=== PATIENT | male | born 1980 | race Caucasian/White ===

== ENCOUNTER 2018-01-17 11:47 | Emergency (ER) | payer MEDICAID, SELFPAY ==
[2018-01-17 11:49] VITALS: BP 137/94; PULSE 93; RESP 16; TEMP 36.1; O2SAT 97; BMI 26.9
[2018-01-17 12:20] VITALS: RESP 18
[2018-01-17 12:26] LABS: Amphetamine Urine VISTA NEGATIVE (<1000 ng/mL); Barbiturate Urine VISTA NEGATIVE (< 200 ng/mL); Benzodiazepine Urine VISTA NEGATIVE (< 200 ng/mL); Cocaine Urine VISTA NEGATIVE (< 300 ng/mL); Ecstacy Urine VISTA NEGATIVE (< 500 ng/mL); Methadone Urine VISTA NEGATIVE (< 300 ng/mL); PCP Urine VISTA NEGATIVE (< 25 ng/mL); THC Urine VISTA NEGATIVE (< 50 ng/mL); Vista UDS pH Range 7
--- NOTE | 2018-01-17 12:41 | ED.VISSUMM ---
- ER Visit Summary Date of Service: 01/17/18 Chief Complaint: [Request for drug screen and cough and congestion] History of Present Illness: The patient is a 37 M [presents the emergency department requesting to have a urine toxicology screen done. Patient currently is a resident at the [facility] and had a urine test that tested positive for amphetamines this morning. Patient is adamant that he does not use amphetamines and he believes it is due to a false positive related to taking Zantac. Patient states that he does have a history of alcohol abuse but does not use drugs. Patient is scheduled to go into rehab for his alcohol use but he is afraid that if he gets kicked out of the [facility] he will be homeless and have nowhere to go. Patient also states that he has had cough and congestion for about a week. He has not had any fevers. Cough is at times productive but he just swallows whenever he coughs up and has not seen any discoloration to the sputum. Patient currently with history of anxiety, depression, and history of DVT. Patient currently on Eliquis and has been compliant. He denies any hemoptysis.] Physical Examination: [HEENT-PERRLA, EOMI. Cranial nerves II through XII grossly intact. TMs clear. Mucous membranes moist. No adenopathy. Cardiovascular-regular rate and rhythm without murmur or ectopy Lungs-clear to auscultation, chest wall stable without crepitus or subcu emphysema Abdomen-normoactive bowel sounds, soft, nontender, no rebound or rigidity, no peritoneal signs. Extremities-intact ?4, normal range of motion, normal pulses, atraumatic]. No track pope noted on the extremities. Test Results: [Urine tox screen obtained was negative for drugs of abuse.] Emergency Department Course and Treatment: [Patient did not want any treatment for his upper respiratory infection] Treatment Plan: [Patient will be referred to primary care physician front office secretary for no doc and he is refusing any treatment for his URI. I suspect likely viral etiology however recommended follow-up if his symptoms do not improve or if he should start having increasing shortness of breath or high fevers.] Disposition: [Discharged home in stable condition] Impression: [URI Request for toxicology screen which is negative for drugs of abuse] This note was generated with Jiniation software. It may contain incorrect words, spelling, and punctuation that were not noted in review of the chart prior to signing ED Disposition - Plan for ED Patient: Chief Complaint: Cold Sx Referrals: NOT,DEFINED [Primary Care Provider] -
--- NOTE | 2018-01-17 12:44 | ED.DCSUM_ITS ---
- ER Visit Summary Date of Service: 01/17/18 Chief Complaint: [Request for drug screen and cough and congestion] History of Present Illness: The patient is a 37 M [presents the emergency department requesting to have a urine toxicology screen done. Patient currently is a resident at the [facility] and had a urine test that tested positive for amphetamines this morning. Patient is adamant that he does not use amphetamines and he believes it is due to a false positive related to taking Zantac. Patient states that he does have a history of alcohol abuse but does not use drugs. Patient is scheduled to go into rehab for his alcohol use but he is afraid that if he gets kicked out of the [facility] he will be homeless and have nowhere to go. Patient also states that he has had cough and congestion for about a week. He has not had any fevers. Cough is at times productive but he just swallows whenever he coughs up and has not seen any discoloration to the sputum. Patient currently with history of anxiety, depression, and history of DVT. Patient currently on Eliquis and has been compl iant. He denies any hemoptysis.] Physical Examination: [HEENT-PERRLA, EOMI. Cranial nerves II through XII grossly intact. TMs clear. Mucous membranes moist. No adenopathy. Cardiovascular-regular rate and rhythm without murmur or ectopy Lungs-clear to auscultation, chest wall stable without crepitus or subcu emphysema Abdomen-normoactive bowel sounds, soft, nontender, no rebound or rigidity, no peritoneal signs. Extremities-intact ?4, normal range of motion, normal pulses, atraumatic]. No track pope noted on the extremities. Test Results: [Urine tox screen obtained was negative for drugs of abuse.] Emergency Department Course and Treatment: [Patient did not want any treatment for his upper respiratory infection] Treatment Plan: [Patient will be referred to primary care physician cash control specialist for no doc and he is refusing any treatment for his URI. I suspect likely viral et iology however recommended follow-up if his symptoms do not improve or if he should start having increasing shortness of breath or high fevers.] Disposition: [Discharged home in stable condition] Impression: [URI Request for toxicology screen which is negative for drugs of abuse] This note was generated with Dragon dictation software. It may contain incorrect words, spelling, and punctuation that were not noted in review of the chart prior to signing ED Disposition - Plan for ED Patient: Chief Complaint: Cold Sx Referrals: NOT,DEFINED [Primary Care Provider] -
--- NOTE | 2018-01-17 12:44 | ED.DEP ---
ED Disposition - Plan for ED Patient: Chief Complaint: Cold Sx Instructions: ED Upper Resp Infec No Abx Tx Referrals: NOT,DEFINED [Primary Care Provider] - Peter Dangelo DO [STAFF PHYSICIAN] - 5-7 Days Additional Instructions: Your Toxicology screen was negative for drugs of abuse
--- OUTSIDE RECORDS SUMMARY | 2018-03-13 20:10 | XMS RPT_ITS ---
:1980 Author Organization OHIP Care Team Providers Name Role Phone GER LOGAN Attending Unavailable NO FAMILY DOCTOR, NO FAMILY DOCTOR Primary Care Unavailable NO FAMILY DOCTOR, NO FAMILY DOCTOR Primary Care Unavailable CHRISTINA NAVARRETE Attending Unavailable DANYEL KEEN Admitting Unavailable DANYEL KEEN Attending Unavailable Denise Nava Attending Unavailable Primay Care Physicia, No Primary Care Unavailable Peter Gregg GLOBAL PROFESSIONAL-C Attending Unavailable Primay Care Physicia, No Referring Unavailable RADHA CHAVEZ Attending Unavailable YULIYA HEARD MD Attending Unavailable MOLLY BARRERA, DR. PAGE Primary Care Unavailable YULIYA HEARD MD Attending Unavailable MOLLY BARRERA, DR. PAGE Primary Care Unavailable LEAH VELAZQUEZ MD Attending Unavailable MOLLY BARRERA, DR. PAGE Primary Care Unavailable LEAH VELAZQUEZ MD Attending Unavailable MOLLY BARRERA, DR. PAGE Primary Care Unavailable MOLLY BARRERA, DR. PAGE Primary Care Unavailable SUE SAUNDERS, DR. MONTAÑO Attending Unavailable [employer] Attending Unavailable [facility] Referring Unavailable DANYEL KEEN Admitting Unavailable DANYEL KEEN Attending Unavailable [facility] Referring Unavailable [facility] Referring Unavailable [facility] Referring Unavailable PROBLEMS PROBLEMS DATE TYPE CONDITION / CODE ATTENDING STATUS SOURCE 11/09/2017 Active Major depressive RADHA CHAVEZ Active [place] disorder, single [facility] Main episode, [place] unspecified / Repository F32.9(ICD-10) 11/09/2017 Active Suicidal ideations RADHA CHAVEZ Active [place] / R45.851(ICD-10) R Clinic Main [place] Repository 08/08/2017 Active Displaced fracture NA Active [facility] proximal phalanx [facility] Other of unspecified [place] finger, subsequent Repository encounter for fracture with routine healing / S62.619D(ICD-10) 06/26/2017 Active Displaced fracture DANYEL KEEN Active [facility] proximal phalanx [facility] Other of unspecified [place] finger, initial Repository encounter for closed fracture / S62.619A(ICD-10) 06/25/2017 Active Unknown / NA Active [place] [facility] Other [place] Repository 06/20/2017 Active Displaced fracture NA Active [facility] distal phalanx [facility] Other of left index [place] finger, initial Repository encounter for closed fracture / S62.631A(ICD-10) 06/20/2017 Admitting Unknown / [employer] Active [facility]Unknown[facility] Repository 04/01/2017 Admitting Chest pain, ARMADA, CHRISTINA Active [facility] diagnosis unspecified / Repository R07.9(ICD-9) 04/01/2017 Final diagnosis Chest pain, ARMADA, CHRISTINA Active [facility] (discharge) unspecified / Repository R07.9(ICD-9) 04/01/2017 Final diagnosis Anxiety disorder, CHRISTINA NAVARRETE [facility] (discharge) unspecified / Repository F41.9(ICD-9) 04/01/2017 Final diagnosis Major depressive [facility] (discharge) disorder, single Repository episode, unspecified / F32.9(ICD-9) 04/01/2017 Final diagnosis Post-traumatic [facility] (discharge) stress disorder, Repository unspecified / F43.10(ICD-9) 04/01/2017 Final diagnosis Nicotine [facility] (discharge) dependence, chewing Repository tobacco, uncomplicated / F17.220(ICD-9) 04/01/2017 Final diagnosis Family hx of ischem [facility] (discharge) heart dis and oth Repository dis of the circ sys / Z82.49(ICD-9) 03/10/2017 Admitting Personal history of ATASSI, FIRAS S Active [facility] diagnosis other specified Repository conditions / Z87.898(ICD-9) 03/10/2017 Final diagnosis Personal history of ATASSI, FIRAS S Active [facility] (discharge) other specified Repository conditions / Z87.898(ICD-9) PROCEDURES PROCEDURES No Procedure Records FoundRESULTS RESULTS INTERNAL MEDICINE Observed: 02/03/2018 Status: F Source: PILI OFFICE VISIT 2:37 PM [facility] REPOSITORY [facility] [address] [place] [address] [place] [address] OFFICE VISIT Date of Service: 02/03/18 MR#: [id number] Acct: [id number] Name: MAENBAKEM Dayna Rep #: [id number] : 1980 Provider: Peter Gregg NP Age/Sex: 37/M Location: [facility] Status: Signed Intake Vital Signs02/03/18 Height 6 ft 1 in 02/03/18 Weight: 233 lb 02/03/18 Body Mass Index (BMI) 30.7 02/03/18 Blood Pressure 114/79 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 with 180 Chief Complaint: Est Care - Needs refills, AND ear inf Is patient in pain?: No Allergies ibuprofen Allergy (Severe, Verified 02/03/18 09:33) Unknown Penicillins Allergy (Severe, Verified 02/03/18 09:33) Unknown Medications acetaminophen 500 mg capsule 500 mg PO Q6H PRN 02/03/18 [History Confirmed 02/03/18] apixaban 5 mg tablet 5 mg PO BID 02/03/18 [History Confirmed 02/03/18] escitalopram 10 mg tablet 10 mg PO DAILY #60 tab 02/03/18 [Rx Confirmed 02/03/18] esomeprazole magnesium 20 mg capsule,delayed release 20 mg PO DAILY 02/03/18 [History Confirmed 02/03/18] hydroxyzine HCl 25 mg tablet 25 mg PO BID PRN tab 02/03/18 [History Confirmed 02/03/18] multivitamin tablet 1 tab PO DAILY #90 tab 02/03/18 [Rx Confirmed 02/03/18] zpvhzehn-wppbpkjca-bjbhygvxn 3.5 mg-10,000 unit/mL-1 % ear drops,susp 4 drp OTIC TID 7 Days #10 ml 02/03/18 [Rx Confirmed 02/03/18] thiamine HCl (vitamin B1) 100 mg tablet 100 mg PO DAILY #90 tab 02/03/18 [Rx Confirmed 02/03/18] PFSH Medical History Alcohol abuse (Acute) Arthritis (Acute) Blood clot in vein (Acute) Drug abuse (Acute) Gastric ulcer (Acute) Seasonal allergies (Acute) Chronic bronchitis (Chronic) Chronic headaches (Chronic) Surgical History History of orthopedic surgery (Acute) Family History Mother Arthritis Cancer Father Arthritis Grandfather Alcohol abuse Father Arthritis Hypertension Myocardial infarction Grandmother High cholesterol Social History alcohol intake: former details: 2 Months sober ( 12/03/17) substance use type: former substance user Date of last use: Long Long time what type of physical activity do you participate in: weight training frequency: daily HPI HPI Chief Complaint: Est Care - Needs refills, AND ear inf Details: KEM HOLGUIN, is a 37 M who presents to the office today for an acute visit of left ear pain and needing refills of his Lexapro. He has a past medical history significant for acute left lower extremity DVT 2 months ago currently on Eliquis, depression, anxiety, and alcohol abuse which she is currently in the 180 program for. He is new to our office as well. The patient states that he has had a left ear pain for approximately 1.5 weeks. He states that he does use earplugs at night which are disposable, however he never cleans or switches them out. He states that there is pain on manipulation of his left ear. He denies any discharge, ringing the ears, ear pressure, or muffled hearing however. He denies any other aggravating or relieving factors. He does think that his symptoms are progressively getting worse. The patient also brings up his Lexapro. He states that approximately 2-1/2 months ago his Lexapro was increased to 20 mg after a drunken episode where he threatened suicide. He states that since having increased, he has been more tired lately and he wonders if he can go back to the 10 mg which she had been on prior for 2 years and was tolerating well. He currently denies any thoughts of harming self or others and states that he does not even recall saying he had suicidal tendencies during his drug an episode. He has now been sober for 2 months as well. The patient otherwise denies any fever, chills, nausea, vomiting, shortness of breath, chest pain or pressure, palpitations, orthopnea, lower extremity edema, syncope or presyncopal episodes. ROS Const Constitutional: No chills, fatigue, fever(s), frequent falls, malaise, weakness, sleep problems or change in appetite Eyes Eyes: No blurry vision, change in vision, double vision, discharge or visual disturbances ENT ENT: Positive for ear pain (Left ) and nasal congestion; no abnormal hearing, ear pressure, tinnitus, dizziness/vertigo or hearing loss Resp Respiratory: No cough, shortness of breath or wheezing Cardio Cardiology: No chest pain at rest, chest pain with exertion, shortness of breath, dyspnea on exertion, generalized swelling, irregular heart rhythm, lightheadedness, orthopnea, fast heart rate or palpitations Gastro GI: Positive for constipation, heartburn and excessive flatus; no abdominal pain, change in bowel habits, diarrhea, nausea/dyspepsia or vomiting Genitourinary Male: No difficulty urinating, burning urination, painful urination, urinary incontinence, urinary frequency, urinary urgency, urinary hesitancy, urinary retention, blood in urine, Frequent nighttime urination/ nocturia, sexual problems, testicle lump or testicle pain Musc Musculoskeletal: Positive for joint pain (Arthritis); no back pain, joint swelling, limited range of motion, numbness, tingling or muscle weakness Skin Skin: No change in skin color, itching, rash or wounds Breast Breast: No breast lump or breast pain Neuro Neurology: No frequent falls, weakness, abnormal hearing, numbness, tingling, unsteady gait/balance, dizziness, loss of vision, memory loss or visual disturbances Psych Psychiatric: No memory loss, Positive for anxiety, No change in appetite, Positive for depression, No Thoughts of harming yourself/Others Endo Endocrine: No fatigue, heat intolerance, increased thirst/drinking, increased hunger or increased urination Aller/Imm Allergy/Immunologic: No wheezing, itchy eyes or seasonal allergy symptoms Juan/Lymp Hematologic/Lymphatic: No easy bleeding, easy bruising or enlarged lymph nodes Exam Const General: cooperative, comfortable, no acute distress Nutritional Appearance: average body habitus, well nourished Orientation: alert, oriented x3 Limitations: mental status not altered HENMT Head: normal to inspection Ears: hearing grossly normal bilaterally, EAC abnormal erythema on the left, EAC tenderness on the left, other and edema on the left Nose: external nose normal Face and sinus: normal facial exam Mouth: oral mucosae normal Throat: posterior oropharynx normal Resp Effort AND Inspection: normal respiratory effort, able to speak in complete sentences, normal respiratory pattern, symmetric chest movement, no audible wheezes, no cough Auscultation: Bilateral: Clear to Auscultation Cardio Palpation: normal PMI Rate: regular rate Heart Sounds: S1 normal, S2 normal, normal S1 and S2, no click, no gallops, no murmurs, no rubs Musc Musculoskeletal: No joint tenderness, decreased ROM or muscle weakness Skin General: no rashes or lesions noted, elasticity normal, turgor normal Lesions: no lesions Rashes: no rashes Neuro General: alert, awake, oriented x3, CN's II-XI intact bilaterally Speech: speech normal Gait: normal gait Motor: muscle tone normal throughout Extrem General: normal to inspection, normal gait, no edema, no pedal edema Psych Appearance: grossly normal Mental Status: mental status grossly normal Affect: normal affect Attitude: cooperative Thought Process: normal Assessment AND Plan 1. Left otitis externa H60.92 Plan Patient symptoms are consistent with left otitis externa, the external ear canal is erythematous, edematous, and tragal tenderness on manipulation. Will treat with Cortisporin eardrops 3 times a day times 7 days. Discussed proper hygiene and discussed not reusing disposable earplugs. Patient to follow-up in 4 weeks for formal establishment appointment, no previous PCP 2. Depression with anxiety F41.8 Plan PHQ 9 score 4, patient does state since having the Lexapro increased to 20 mg he is feeling more tired and lethargic. We will taper him back down to 10 mg daily and see how he does. No current thoughts of harming self or others. Patient to follow- up in 4 weeks. 3. Alcohol abuse F10.10 Plan Patient per self report has been 2 months sober and will continue to remain in the 180 program. Thiamine supplementation sent to the pharmacy given his alcohol abuse history. Plan Detail Other Medications New: Discontinued: Follow Up 4 weeks or sooner if needed Coding Level of Care Code Off vis,new,level 3 Diagnoses Left otitis externa H60.92 Depression with anxiety F41.8 Alcohol abuse F10.10 02/03/18 1437 <Electronically signed by Peter GRANADOS> Date Peter GRANADOS Cosigner Signature: Date (if applicable) CC: DISCHARGE INSTRUCTION Observed: 01/17/2018 Status: F Source: [place] 12:45 PM [facility] REPOSITORY [facility] Medical Records Department [address] [place] [id number] Discharge Instruction 01/17/18 1244 MR#: [id number] Acct: [id number] Name: KEM HOLGUIN Rep #: [id number] : 1980 37 From: Denise Nava DO PCP: NOT, DEFINED Status: PRE ER ED Disposition - Plan for ED Patient: Chief Complaint: Cold Sx Instructions: ED Upper Resp Infec No Abx Tx Referrals: NOT,DEFINED [Primary Care Provider] - Peter Dangelo DO [STAFF PHYSICIAN] - 5-7 Days Additional Instructions: Your Toxicology screen was negative for drugs of abuse What to do if you have Problems For any increased pain, shortness of breath, bleeding, nausea or vomiting, chest pain, or any unexpected problems, contact your Primary Care Provider. Call [facility] ([phone]) or report to the closest Emergency Room. Call 911 if necessary. 01/17/18 1245 <Electronically signed by Denise Nava DO> Date Denise Nava DO Cosigner Signature (If Indicated): Date CC: DEFINED NOT EMERGENCY DEPARTMENT Observed: 01/17/2018 Status: F Source: [place] SUMMARY 12:44 PM [facility] REPOSITORY [facility] Medical Records Department [address] [place] [address] Emergency Department Summary 01/17/18 1241 MR#: [id number] Acct: [id number] Name: KEM HOLGUIN Rep #: [id number] : 1980 37 From: Denise Nava DO PCP: NOT, DEFINED Status: PRE ER - ER Visit Summary Date of Service: 01/17/18 Chief Complaint: [Request for drug screen and cough and congestion] History of Present Illness: The patient is a 37 M [presents the emergency department requesting to have a urine toxicology screen done. [facility] and had a urine test that tested positive for amphetamines this morning. Patient is adamant that he does not use amphetamines and he believes it is due to a false positive related to taking Zantac. Patient states that he does have a history of alcohol abuse but does not use drugs. Patient is scheduled to go into rehab for his alcohol use but he is afraid that if he gets kicked out of the [facility] he will be homeless and have nowhere to go. Patient also states that he has had cough and congestion for about a week. He has not had any fevers. Cough is at times productive but he just swallows whenever he coughs up and has not seen any discoloration to the sputum. Patient currently with history of anxiety, depression, and history of DVT. Patient currently on Eliquis and has been compliant. He denies any hemoptysis.] Physical Examination: [HEENT-PERRLA, EOMI. Cranial nerves II through XII grossly intact. TMs clear. Mucous membranes moist. No adenopathy. Cardiovascular-regular rate and rhythm without murmur or ectopy Lungs-clear to auscultation, chest wall stable without crepitus or subcu emphysema Abdomen-normoactive bowel sounds, soft, nontender, no rebound or rigidity, no peritoneal signs. Extremities-intact 4, normal range of motion, normal pulses, atraumatic]. No track pope noted on the extremities. 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 I suspect likely viral etiology however recommended follow-up if his symptoms do not improve or if he should start having increasing shortness of breath or high fevers.] Disposition: [Discharged home in stable condition] Impression: [URI Request for toxicology screen which is negative for drugs of abuse] This note was generated with [employer] dictation software. It may contain incorrect words, spelling, and punctuation that were not noted in review of the chart prior to signing ED Disposition - Plan for ED Patient: Chief Complaint: Cold Sx Referrals: NOT,DEFINED [Primary Care Provider] - What to do if you have Problems For any increased pain, shortness of breath, bleeding, nausea or vomiting, chest pain, or any unexpected problems, contact your Primary Care Provider. Call [facility] ([phone]) or report to the closest Emergency Room. Call 911 if necessary. 01/17/18 1248 <Electronically signed by Denise Nava DO> Date Denise Nava DO Cosigner Signature (If Indicated): Date CC: DEFINED NOT URINE DRUG SCREEN Collected: 01/17/2018 Status: F Source: PILI (VISTA) 12:00 PM [facility] REPOSITORY TYPE CODE TESTS RESULT OUT OF RANGE REFERENCE UNITS LAB L505.0075 TO BE Normal CONFIRMED Result Comment: CONFIRMATORY TESTING FOR ALL POSITIVE URINE DRUG SCREEN RESULTS WILL ONLY BE SENT OUT UPON PHYSICIAN ORDER. VISTA Urine Drug Screen methods provide only preliminary analytical test results. A more specific alternate chemical method must be used in order to obtain a confirmed analytical result. Gas chromatography/mass spectrometery (GC/MS) is the preferred confirmatory method. Clinical consideration and professional judgement should be applied to any drug of abuse test result, particularly when preliminary positive results are used. URINE TCA TESTING MUST BE ORDERED SEPARATELY. USE TEST MNEMONIC: [facility] LAB L505.5005 VISTA UDS PH 7 Normal LAB L505.5015 <1000 ng/mL AMPHETAMINES Normal NEGATIVE LAB L505.5025 < 200 ng/mL BARBITIURATES Normal NEGATIVE LAB L505.5035 < 200 ng/mL BENZODIAZIPINE Normal NEGATIVE LAB L505.5045 < 300 ng/mL COCAINE Normal NEGATIVE LAB L505.5055 < 500 ng/mL ECSTACY Normal NEGATIVE LAB L505.5065 < 300 ng/mL METHADONE Normal NEGATIVE LAB L505.5075 < 300 ng/mL OPIATES Normal NEGATIVE LAB L505.5085 < 25 ng/mL PCP Normal NEGATIVE LAB L505.5095 < 50 ng/mL THC Normal NEGATIVE Performed By: #### L505.5000 #### [facility] [address] [place], [address] VL VENOUS UNILATERAL Observed: 12/05/2017 Status: F Source: [facility] EXT FOR DVT 3:06 PM [facility] REPOSITORY ORIGINAL LEFT lower extremity venous ultrasound, grayscale study with duplex Doppler exam including color Doppler interrogation and waveform analysis HISTORY: Pain COMPARISON: None The common femoral, superficial femoral and popliteal veins are patent and readily compressible. Color Doppler interrogation and augmentation are normal in these areas. The LEFT posterior tibial and gas trocnemius veins are abnormal. There are filled with echogenic material and appear mildly expanded. The findings are most compatible with acute clot. There is no other significant contributory abnormality identified. IMPRESSION: This exam shows clot at the LEFT posterior tibial and gastrocnemius veins. No other significant clot identified. Interpreted By: Brooklyn Breen MD Preliminary Report By: Brooklyn Breen MD Electronically Signed By: Brooklyn Breen MD Dictated Date: 12/08/2017 9:34:20 AM Prelim Date: 12/08/2017 9:34:20 AM Sign Date: 12/08/2017 10:40:00 AM ED NOTE Observed: 11/10/2017 Status: COMPLETED Source: [place] 11:45 AM [facility] REPOSITORY HNO ID: [id number] Author: Terry Mojica) SHAHZAD Branch Service: Emergency Medicine Author Type: Registered Nurse Type: ED Notes Filed: 11/10/2017 11:59 AM Note Text: Received IC from pt girlfriend Bushra. Advised Bushra pt admitted to [facility]. ED NOTE Observed: 11/10/2017 Status: COMPLETED Source: [place] 11:44 AM [facility] REPOSITORY HNO ID: [id number] Author: Terry Mojica) SHAHZAD Branch Service: Emergency Medicine Author Type: Registered Nurse Type: ED Notes Filed: 11/10/2017 11:45 AM Note Text: Admission discussed - pt verbalizes understanding of. Report called to receiving nurse Mayela PIKE. Verbal report provided to DM crew. ED NOTE Observed: 11/10/2017 Status: COMPLETED Source: [place] 11:00 AM [facility] REPOSITORY HNO ID: [id number] Author: Terry Mojica) SHAHZAD Branch Service: Emergency Medicine Author Type: Registered Nurse Type: ED Notes Filed: 11/10/2017 11:12 AM Note Text: Pt laying in bed resting quietly with eyes closed. Easily arouses to verbal stimuli. Respirations even and unlabored with equal chest rise and fall. Comfort measures provided. Snack of jas yoshi and pretzels provided. No needs voiced at this time. ED PROV NOTE Observed: 11/10/2017 Status: COMPLETED Source: [place] 10:27 AM [facility] REPOSITORY HNO ID: [id number] Author: Radha Chavez DO Service: Emergency Medicine Author Type: Physician Type: ED Provider Notes Filed: 11/10/2017 10:27 AM Note Text: Addendum note: Care endorsed to me at morning shift change his face report. Patient accepted to [facility] for psychiatric admission Condition: Stable Disposition: Transfer [facility] Radha Chavez, 11/10/17 1027 ED NOTE Observed: 11/10/2017 Status: COMPLETED Source: [place] 9:10 AM [facility] REPOSITORY HNO ID: [id number] Author: Terry Branch RN Service: Emergency Medicine Author Type: Registered Nurse Type: ED Notes Filed: 11/10/2017 9:13 AM Note Text: Pt requesting something I am so anxious. Dr. Chavez advised of. NO VO received - Ativan 2 mg PO x 1 now. ED NOTE Observed: 11/10/2017 Status: COMPLETED Source: [place] 9:01 AM [facility] REPOSITORY HNO ID: [id number] Author: Terry Branch RN Service: Emergency Medicine Author Type: Registered Nurse Type: ED Notes Filed: 11/10/2017 9:01 AM Note Text: Security notified of need to inventory and clear pt belongings. ED NOTE Observed: 11/10/2017 Status: COMPLETED Source: [place] 8:59 AM [facility] REPOSITORY HNO ID: [id number] Author: Terry Branch RN Service: Emergency Medicine Author Type: Registered Nurse Type: ED Notes Filed: 11/10/2017 9:00 AM Note Text: Call placed to pt girlfrienlaya Rock per his request advising that he will be transferred to [facility] in [place]. Call back number provided on answering machine. Pt requests to talk to her if she calls. ED NOTE Observed: 11/10/2017 Status: COMPLETED Source: [place] 8:53 AM [facility] REPOSITORY HNO ID: [id number] Author: Terry Branch RN Service: Emergency Medicine Author Type: Registered Nurse Type: ED Notes Filed: 11/10/2017 8:54 AM Note Text: Call placed to Joanna inquiring on admission status of pt. Per Micheline pt to be admitted at [facility] when bed available. Expect discharges at [facility] this morning. ED NOTE Observed: 11/10/2017 Status: COMPLETED Source: [place] 8:30 AM [facility] REPOSITORY HNO ID: [id number] Author: Terry Mojica) SHAHZAD Branch Service: Emergency Medicine Author Type: Registered Nurse Type: ED Notes Filed: 11/10/2017 8:30 AM Note Text: Pt up to BR. Continuous monitoring by staff member maintained. ED NOTE Observed: 11/10/2017 Status: COMPLETED Source: [place] 7:15 AM [facility] REPOSITORY HNO ID: [id number] Author: Terry KimRn) Jose Carlos RN Service: Emergency Medicine Author Type: Registered Nurse Type: ED Notes Filed: 11/10/2017 7:59 AM Note Text: Pt laying in bed resting quietly with eyes closed. Easily arouses to verbal stimuli. Respirations even and unlabored with equal chest rise and fall. Pt cooperative with staff/care. Comfort measures provided - pillow per request. Continuous observation maintained. Updated on POC - awaiting bed/assignment/transfer. Pt verbalizes understanding of. No needs voiced at this time. Pt denies SI when specifically asked. ED NOTE Observed: 11/10/2017 Status: COMPLETED Source: [place] 7:13 AM [facility] REPOSITORY HNO ID: [id number] Author: Vinny Mojica) SHAHZAD Massey Service: (none) Author Type: Registered Nurse Type: ED Notes Filed: 11/10/2017 7:14 AM Note Text: Handoff report given to Terry Melvin rn ED NOTE Observed: 11/10/2017 Status: COMPLETED Source: [place] 6:43 AM [facility] REPOSITORY HNO ID: [id number] Author: Vinny KimRn) SHAHZAD Massey Service: (none) Author Type: Registered Nurse Type: ED Notes Filed: 11/10/2017 6:45 AM Note Text: Pt advised he is getting admitted to [facility]. Pt verbalizes understanding and is agreeable. Pt is alert and oriented x 3. Vitals are stable. Pt was sleeping but easily awakened for vitals ED NOTE Observed: 11/10/2017 Status: COMPLETED Source: [place] 3:34 AM [facility] REPOSITORY HNO ID: [id number] Author: Vinny Mojica) SHAHZAD Massey Service: (none)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 MSK: Negative for joint pain, swelling, back pain, muscle pain. SKIN: Negative for lesions, rash, itching, metal sensitivity NEURO: Negative for seizure, trauma, numbness/tingling of extremities. ENDOCRINE: Negative for Diabetes Type 1 and Type 2 HEMATOLOGY: Negative for excessive bleeding, clots, bleeding disorders. Referring Provider: SELF [200] Allergies As of Date: 08/08/2017 Noted Allergy Reaction IBUPROFEN 05/03/2007 PENICILLINS 06/20/2017 14 - Other: See Comments Date Reviewed: 08/08/2017 Reviewed by: Monica Alejo - Fully Assessed Reason for Visit: Follow Up [171] Cmt: LT 2ND DIGIT Primary Visit Diagnosis:Closed fracture dislocation of proximal interphalangeal (PIP) joint of finger with routine healing, subsequent encounter [S62.619D] Order(s):XR DIGIT GENERAL 3V FRONTAL/LAT/OBL LT [[id number]] Order #: [id number] Prescriptions as of 08/08/2017 Sig: IBUPROFEN 800 MG TABLET Take 1 tablet by mouth every * ESOMEPRAZOLE MAGNESIUM 20 MG * Take 20 mg by mouth DAILY (6 * ACETAMINOPHEN 500 MG TABLET Take 2 tablets by mouth every* CYCLOBENZAPRINE 10 MG TABLET Take 1 tablet by mouth every * Problem List As Of Date 08/08/2017 Noted Resolved Closed fracture dislocation of proximal interph*INVALID FOR* Level of Service: EST PATIENT VISIT LEVEL 2 [18549] Disposition: Return if symptoms worsen or fail to improve. LOS history recorded Follow-up and Disposition History Recorded Encounter Status:Closed by BROOKLYN MCCOY MD on 08/08/17 Chart Close Cosign Required by: Roberto Norris[] PROGRESS Observed: 08/08/2017 Status: COMPLETED Source: [place] 10:29 AM [facility] REPOSITORY HNO ID: [id number] Author: Monica Alejo Service: (none) Author Type: [employer]ur [employer] Type: Progress Notes Filed: 08/08/2017 10:33 AM Note Text: REVIEW OF SYSTEMS: GENERAL: Well developed, well nourished. No acute distress PAIN: Negative for pain, history of chronic pain or current treatment for chronic pain conditions CARDIOVASCULAR: Negative for chest pain, leg swelling and palpations. MSK: Negative for joint pain, swelling, back pain, muscle pain. SKIN: Negative for lesions, rash, itching, metal sensitivity NEURO: Negative for seizure, trauma, numbness/tingling of extremities. ENDOCRINE: Negative for Diabetes Type 1 and Type 2 HEMATOLOGY: Negative for excessive bleeding, clots, bleeding disorders. PROGRESS Observed: 08/08/2017 Status: COMPLETED Source: [place] 10:24 AM [facility] REPOSITORY HNO ID: [id number] Author: [place] (Sherrie Mccoy Service: (none) Author Type: Resident Type: Progress Notes Filed: 08/08/2017 12:06 PM Note Text: Chief complaint: s/p ORIF L index PIP fx/dx 06/26/2017 Kem Holguin is a 36 year old male who presents for follow up after undergoing the above procedure on the above date. His follow up has been delayed due to recent incarceration. He has been compliant with non weight bearing restrictions in gerson straps. He only has complaints of mild stiffness. Taking ibuprofen for pain which controls his pain well. He has no other complaints at this time. Reviewed nursing note and current pain scale. PAST MEDICAL HISTORY Diagnosis Date - Saucedo-Sue disease (HCC) PAST SURGICAL HISTORY Procedure Laterality Date - EXTENSIVE LEG SURGERY - FINGER SURGERY HX Left No family history on file. Social History Substance Use Topics - Smoking status: Never Smoker - Smokeless tobacco: Current User Types: Snuff - Alcohol use No Medications:ibuprofen (MOTRIN) 800 mg tablet, Take 1 tablet by mouth every 8 hours as needed (for pain.). esomeprazole (NEXIUM) 20 mg capsule, Take 20 mg by mouth DAILY (6 AM). acetaminophen (TYLENOL EXTRA STRENGTH) 500 mg tablet, Take 2 tablets by mouth every 8 hours as needed for Pain. cyclobenzaprine 10 mg tablet, Take 1 tablet by mouth every 8 hours as needed. No current facility-administered medications for this visit. Allergies: ALLERGIES Allergen Reactions - Ibuprofen - Penicillins Other: See Comments Physical Examination: There were no vitals taken for this visit. General Appearance: Well appearing, alert, in no acute distress, well-hydrated, well nourished. Skin: Skin color, texture, turgor normal, no suspicious rashes or lesions. Extremities: L index finger -Incision is well approximated with no erythema or drainage. -ROM - resting flexion contracture of 10 deg at the PIP, Normal range of motion -SILT rad/med aspects of index finger -+ 5/5 AIN/PIN/U -BCR in finger Peripheral Pulses: Normal. Neurologic: grossly in tact Images: No new images Assessment and Plan: 1. Closed fracture dislocation of proximal interphalangeal (PIP) joint of finger with routine healing, subsequent encounter - ICD9: V54.12, ICD10: S62.619D -WBAT L hand -Advance to full weight-bearing, no restrictions -Pain control as needed -Follow up prn Discussed with Dr. Lucila Mccoy MD Orthopaedic Surgery 08/08/2017 10:31 AM ?I was the supervising attending for this patient at today's [facility].? Roberto Norris MD PROGRESS Observed: 07/16/2017 Status: COMPLETED Source: [place] 8:53 PM [facility] REPOSITORY HNO ID: [id number] Author: Kain Banerjee Service: (none) Author Type: Physician Type: Progress Notes Filed: 07/16/2017 8:53 PM Note Text: Agree with resident assessment and plan. PROGRESS Observed: 07/16/2017 Status: COMPLETED Source: [place] 1:50 PM [facility] REPOSITORY HNO ID: [id number] Author: Cachorro Casarez Service: (none) Author Type: Resident Type: Progress Notes Filed: 07/16/2017 1:58 PM Note Text: Chief complaint: s/p ORIF L index PIP fx/dx 06/26/2017 Kem Holguin is a 36 year old male who presents for follow up after undergoing the above procedure on the above date. His follow up has been delayed due to recent incarceration. He has been compliant with his splint and non weight bearing restriuctions. Taking ibuprofen for pain which controls his pain well. Reviewed nursing note and current pain scale. PAST MEDICAL HISTORY Diagnosis Date - Saucedo-Sue disease (HCC) PAST SURGICAL HISTORY Procedure Laterality Date - EXTENSIVE LEG SURGERY - FINGER SURGERY HX Left History reviewed. No pertinent family history. Social History Substance Use Topics - Smoking status: Never Smoker - Smokeless tobacco: Current User Types: Snuff - Alcohol use No Medications: Current Outpatient Prescriptions: esomeprazole (NEXIUM) 20 mg capsule Take 20 mg by mouth DAILY (6 AM). acetaminophen (TYLENOL EXTRA STRENGTH) 500 mg tablet Take 2 tablets by mouth every 8 hours as needed for Pain. cyclobenzaprine 10 mg tablet Take 1 tablet by mouth every 8 hours as needed. ibuprofen (MOTRIN) 800 mg tablet Take 1 tablet by mouth every 8 hours as needed (for pain.). No current facility-administered medications for this visit. Allergies: ALLERGIES Allergen Reactions - Ibuprofen - Penicillins Other: See Comments Physical Examination: Resp 25 Ht 6' 2 (1.88m) Wt 220 lb (99.8kg) BMI 28.23 kg/(m2). General Appearance: Well appearing, alert, in no acute distress, well-hydrated, well nourished. Skin: Skin color, texture, turgor normal, no suspicious rashes or lesions. Extremities: L index finger -Incision is well approximated, early skin healing, no erythema or drainage, sutures present -ROM - resting flexion contracture of 30 deg at the PIP -SILT rad/med aspects of index finger -Strength deferred -BCR in finger Peripheral Pulses: Normal. Neurologic: grossly in tact Images: Multiple views L index finger ordered obtained and interpreted, show maintenance of congruently reduced PIP joint, stable position of hardware and alignment. Assessment and Plan: 1. Closed fracture dislocation of proximal interphalangeal joint of finger, initial encounter - ICD9: 816.01, ICD10: S62.619A At this time we will progress his activity to encourage ROM with gerson straps. Maintain non weight bearing. Ibuprofen for pain control. Follow up in 3 weeks at which time will likely advance to full activity as tolerated. D/w pt. And Dr. Keen No Follow-up on file. Cachorro Casarez MD PROGRESS Observed: 07/16/2017 Status: COMPLETED Source: [place] 1:03 PM [facility] REPOSITORY HNO ID: [id number] Author: Nicolás Hagen (Tech) Service: (none) Author Type: Workers' Compensation Commissioner Type: Progress Notes Filed: 07/16/2017 1:58 PM Note Text: REVIEW OF SYSTEMS: GENERAL: Well developed, well nourished. No acute distress PAIN: Negative for pain, history of chronic pain or current treatment for chronic pain conditions CARDIOVASCULAR: Negative for chest pain, leg swelling and palpations. MSK: joint pain yes SKIN: Negative for lesions, rash, itching, metal sensitivity NEURO: Negative for seizure, trauma, numbness/tingling of extremities. ENDOCRINE: Negative for Diabetes Type 1 and Type 2 HEMATOLOGY: Negative for excessive bleeding, clots, bleeding disorders. CNOV Observed: 07/16/2017 Status: COMPLETED Source: [place] 1:00 PM [facility] Office Visit (AKARIS) KEM HOLGUIN ([id number]) 1980 M Date Time Provider Department 07/16/17 1:00 PM [facility] During your visit today, we recorded the following information about you: Respiration Weight Height 25/minute 99.8 kg 1.88 m [place] 07/16/2017 1:58 PM Signed REVIEW OF SYSTEMS: GENERAL: Well developed, well nourished. No acute distress PAIN: Negative for pain, history of chronic pain or current treatment for chronic pain conditions CARDIOVASCULAR: Negative for chest pain, leg swelling and palpations. MSK: joint pain yes SKIN: Negative for lesions, rash, itching, metal sensitivity NEURO: Negative for seizure, trauma, numbness/tingling of extremities. ENDOCRINE: Negative for Diabetes Type 1 and Type 2 HEMATOLOGY: Negative for excessive bleeding, clots, bleeding disorders. Cachorro Casarez MD 07/16/2017 1:58 PM Signed Chief complaint: s/p ORIF L index PIP fx/dx 06/26/2017 Kem Holguin is a 36 year old male who presents for follow up after undergoing the above procedure on the above date. His follow up has been delayed due to recent incarceration. He has been compliant with his splint and non weight bearing restriuctions. Taking ibuprofen for pain which controls his pain well. Reviewed nursing note and current pain scale. PAST MEDICAL HISTORY Diagnosis Date - Saucedo-Sue disease (HCC) PAST SURGICAL HISTORY Procedure Laterality Date - EXTENSIVE LEG SURGERY - FINGER SURGERY HX Left History reviewed. No pertinent family history. Social History Substance Use Topics - Smoking status: Never Smoker - Smokeless tobacco: Current User Types: Snuff - Alcohol use No Medications: Current Outpatient Prescriptions: esomeprazole (NEXIUM) 20 mg capsule Take 20 mg by mouth DAILY (6 AM). acetaminophen (TYLENOL EXTRA STRENGTH) 500 mg tablet Take 2 tablets by mouth every 8 hours as needed for Pain. cyclobenzaprine 10 mg tablet Take 1 tablet by mouth every 8 hours as needed. ibuprofen (MOTRIN) 800 mg tablet Take 1 tablet by mouth every 8 hours as needed (for pain.). No current facility-administered medications for this visit. Allergies: ALLERGIES Allergen Reactions - Ibuprofen - Penicillins Other: See Comments Physical Examination: Resp 25 Ht 6' 2 (1.88m) Wt 220 lb (99.8kg) BMI 28.23 kg/(m2). General Appearance: Well appearing, alert, in no acute distress, well-hydrated, well nourished. Skin: Skin color, texture, turgor normal, no suspicious rashes or lesions. Extremities: L index finger -Incision is well approximated, early skin healing, no erythema or drainage, sutures present -ROM - resting flexion contracture of 30 deg at the PIP -SILT rad/med aspects of index finger -Strength deferred -BCR in finger Peripheral Pulses: Normal. Neurologic: grossly in tact Images: Multiple views L index finger ordered obtained and interpreted, show maintenance of congruently reduced PIP joint, stable position of hardware and alignment. Assessment and Plan: 1. Closed fracture dislocation of proximal interphalangeal joint of finger, initial encounter - ICD9: 816.01, ICD10: S62.619A At this time we will progress his activity to encourage ROM with gerson straps. Maintain non weight bearing. Ibuprofen for pain control. Follow up in 3 weeks at which time will likely advance to full activity as tolerated. D/w pt. And Dr. Keen No Follow-up on file. MD Kain Chavez MD 07/16/2017 8:53 PM Signed Agree with resident assessment and plan. Referring Provider: SELF [200] Allergies As of Date: 07/16/2017 Noted Allergy Reaction IBUPROFEN 05/03/2007 PENICILLINS 06/20/2017 14 - Other: See Comments Date Reviewed: 07/16/2017 Reviewed by: Nicolás Hagen (Tech) - Fully Assessed Reason for Visit: Musculoskeletal Problem [69] Cmt: Lt. index finger fx. Primary Visit Diagnosis:Closed fracture dislocation of proximal interphalangeal joint of finger, initial encounter [S62.619A] Order(s):XR DIGIT GENERAL 3V FRONTAL/LAT/OBL LT [[id number]] Order #: [id number] ibuprofen (MOTRIN) 800 mg tabletTake 1 tablet by mouth every 8 hours as needed (for pain.).Disp: 60 tabletRfl: 0 Prescriptions as of 07/16/2017 Sig: ESOMEPRAZOLE MAGNESIUM 20 MG * Take 20 mg by mouth DAILY (6 * ACETAMINOPHEN 500 MG TABLET Take 2 tablets by mouth every* CYCLOBENZAPRINE 10 MG TABLET Take 1 tablet by mouth every * IBUPROFEN 800 MG TABLET Take 1 tablet by mouth every * Problem List As Of Date 07/16/2017 Noted Resolved Closed fracture dislocation of proximal interph*INVALID FOR* Prescriptions ordered this encounter Disp Refills Start End IBUPROFEN 800 MG TABLET 60 t* 0 07/16/2017 Class: Print RX Route: ORAL Sig: Take 1 tablet by mouth every 8 hours as needed (for pain.). Medications Discontinued During This Encounter ibuprofen 600 mg tablet 20 t* 0 08/14/2011 07/16/2017 Class: Print RX Route: ORAL Sig: Take 1 tablet by mouth every 6 hours as needed. Disc: Reason for discontinue is not on file. Level of Service: EST PATIENT VISIT LEVEL 2 [50905] LOS history recorded Encounter Status:Closed by CACHORRO CASAREZ MD on 07/16/17 Chart Close Cosign Required by: Kain Banerjee[] ANES POST Observed: 06/26/2017 Status: COMPLETED Source: [place] 4:13 PM [facility] REPOSITORY HNO ID: [id number] Author: [place] Cam Service: Anesthesiology Author Type: Physician Type: Anesthesia PostOp Filed: 06/26/2017 4:16 PM Note Text: POST ANESTHESIA EVALUATION NOTE SERVICE DATE: 06/26/2017 SERVICE TIME: 4:14 PM : 1980 Vitals: 06/26/17 1035 06/26/17 1405 Temp: 36.6 ?C (97.8 ?F) 36.2 ?C (97.2 ?F) 06/26/17 1405 06/26/17 1415 06/26/17 1425 06/26/17 1430 BP: 121/66 119/65 118/75 121/74 06/26/17 1415 06/26/17 1420 06/26/17 1425 06/26/17 1430 Pulse: 67 67 68 73 06/26/17 1415 06/26/17 1420 06/26/17 1425 06/26/17 1430 Resp: 15 28 20 14 06/26/17 1415 06/26/17 1420 06/26/17 1425 06/26/17 1430 SpO2: 97% 97% 97% 98% Validated Vital Signs: Yes POST ANES STATUS: No apparent anesthetic complications. The patient is appropriately hydrated with stable respiratory and cardiovascular status. Patient has safe and adequate airway control. The patient has appropriate pain relief and no significant post operative nausea or vomiting. The patient has achieved baseline mental status. 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 HIS RIDE HOME IS HIS SPONSOR AND THE SPONSOR SUGGESTS NO NARCOTICS AND ASKED TO SPEAK TO THE SURGEON. AFTER SPEAKING WITH SURGEON PATIENT SUGGESTS ALTERNATE MEDICINE HE CANNOT TAKE ANTI INFLAMITORIES/SJS. SURGEON AGREES TO CALL IN RX FOR TRAMADOL FOR PATIENT TO [facility]. BRIEF OP NOT Observed: 06/26/2017 Status: COMPLETED Source: [place] 2:10 PM [facility] OTHER [facility] REPOSITORY HNO ID: [id number] Author: Danyel Keen Service: Hand Surgery Author Type: Physician Type: Brief Op Note Filed: 06/26/2017 2:12 PM Note Text: BRIEF OPERATIVE / PROCEDURE NOTE LOG ID: [id number] Surgery/Procedure Date: 06/26/2017 Incision/Procedure Start Time: 12:47 PM Incision Close/Procedure End Time: 1:54 PM Surgeon(s)/Proceduralist(s) and Career Manager(s): Surgeon(s) and Role: * Danyel Keen - Primary * Girish (Beatrice) Jemal - Resident - Assisting No Additional Staff Procedure(s): Open Reduction Internal Fixation Left Index Proximal Interphalangeal Joint Articular Fracture Anesthesia: General + Digital Block Findings: Anatomic reduction achieved with 1.3 mm lag screws x 2 Estimated Blood Loss: minimal Specimens: None Complications: None Pre-Op/Pre-Procedure Diagnosis: Left index proximal interphalangeal joint articular fracture Post-Op/Post-Procedure Diagnosis: same SIGNATURE: Danyel Keen MD PATIENT NAME: Kem Holguin DATE: June 26, 2017 TIME: 2:11 PM PAGER/CONTACT #: FINGER(S) MIN 2 [phone] Observed: 06/26/2017 Status: F Source: [facility] [id number] 1:45 PM HEALTH SYSTEM REPOSITORY Performed at [facility] APPROVED BY: Peter Preston MD EXAM TITLE: LEFT INDEX FINGER DATE: 06/26/2017 12:15 COMPARISON: Left index finger 06/20/2017 CLINICAL INDICATION/HISTORY: Displaced fracture left index finger TECHNIQUE: 3 fluoroscopic views of the left index finger are presented. A total of 4 minutes and 49 seconds of fluoroscopy time was utilized. FINDINGS: There are 2 screws traversing the fracture through the middle phalanx of the index finger. The fracture appears in anatomic alignment. Bony details limited by fluoroscopic technique. IMPRESSION: Intraoperative images showing open reduction internal fixation of fracture through the middle phalanx of the index finger. Please refer to operative report for complete intraoperative findings. ANES PREOP Observed: 06/26/2017 Status: COMPLETED Source: [place] 11:33 AM [facility] REPOSITORY O ID: [id number] Author: [place] Cam Service: Anesthesiology Author Type: Physician Type: Anesthesia PreOp Filed: 06/26/2017 11:41 AM Note Text: ANESTHESIOLOGY DAY OF SURGERY NOTE SERVICE DATE: 06/26/2017 SERVICE TIME: 11:33 AM : 1980 Procedure(s) (LRB): ORIF LEFT INDEX PROXIMAL INTERPHALANGEAL JOINT, POSSIBLE DYNAMIC EXTERNAL FIXATOR (Left) POSSIBLE DIANA-HAMATE AUTOGRAFT RECONSTRUCTION (Left) Surgeon(s): Danyel Stout (Sherrie Carlson Estimated body mass index is 28.89 kg/m? as calculated from the following: Height as of this encounter: 188 cm (6' 2). Weight as of this encounter: 102.1 kg (225 lb). Most recent hematocrit and potassium results: Hematocrit 44.2 12/31/2008 Potassium 4.4 12/31/2008 ANES DOS/PREOP NOTE: Vitals: 06/26/17 1035 BP: 169/78 Pulse: 70 Resp: 16 Temp: 36.6 ?C (97.8 ?F) TempSrc: Temporal Artery SpO2: 97% Weight: 102.1 kg (225 lb) Height: 188 cm (6' 2) ACTIVE PROBLEM LIST Closed Fracture Dislocation of Proximal Interphalangeal Joint of Finger, Initial Encounter PAST MEDICAL HISTORY Diagnosis Date - Saucedo-Sue disease (HCC) PAST SURGICAL HISTORY Procedure Laterality Date - EXTENSIVE LEG SURGERY No family history on file. Social History: Social History Substance Use Topics - Smoking status: Never Smoker - Smokeless tobacco: Current User Types: Snuff - Alcohol use No No current facility-administered medications on file prior to encounter. Current Outpatient Prescriptions on File Prior to Encounter: cyclobenzaprine 10 mg tablet Take 1 tablet by mouth every 8 hours as needed. ibuprofen 600 mg tablet Take 1 tablet by mouth every 6 hours as needed. Current Facility-Administered Medications: lactated ringers infusion 5-30 mL/hr INTRAVENOUS CONTINUOUS Danyel Keen Last Rate: 30 mL/hr at 06/26/17 1050 30 mL/hr at 06/26/17 1050 clindamycin 900 mg in D5W 50 mL (CLEOCIN) 900 mg INTRAVENOUS Pre-Op Once Danyel Keen Allergies: ALLERGIES Allergen Reactions - Ibuprofen - Penicillins Other: See Comments DOS EXAM: Adequate NPO status: Yes Anesthetic risks, benefits, alternatives, personnel and consent discussed: Yes Patient agrees to proceed: Yes Previous Anesthesia: No history of adverse event. Airway Assessment: MP 3; Neck ROM: Full ROM without neurologic symptoms; Airway Evaluation: No significant abnormalities Symptoms of Sleep Apnea: Male gender Dentition: Teeth intact Additional Physical Exam: Lungs: Patient health status unchanged since recent history and physical. See history and physical for exam findings. Cardiac: Patient health status unchanged since recent history and physical. See history and physical for exam findings. Additional Pertinent Findings: N/A Blood Products: Not anticipated for this procedure. Anesthetic Plan: General, Standard ASA Monitors Pain Management Plan: Parenteral or Oral ASA Class: 2 Other Medical Problems: Hx saucedo-Sue with PCN, GERD controlled with meds, PTSD, hx ETOH abuse Chronic Beta Cathy medication administered within 24 hours: N/A I have interviewed and examined the patient. I have reviewed the medical record and/or the pre-anesthesia evaluation, pertinent labs, and test results. Significant changes in the patient's condition since the History and Physical, not otherwise documented in primary service progress notes: No This contains updated information obtained within 48 hours of Surgery/Procedure. SIGNATURE: [place] Cam MD PATIENT NAME: Kem Holguin DATE: June 26, 2017 TIME: 11:33 AM CSN: [id number] PT ED Observed: 06/26/2017 Status: COMPLETED Source: [place] 10:38 AM [facility] OTHER [facility] REPOSITORY O ID: [id number] Author: Maribeth Gamboa (Rn), RN Service: (none) Author Type: Registered Nurse Type: Patient Education Filed: 06/26/2017 10:39 AM Note Text: ONGOING PATIENT EDUCATION TOPIC Reinforced: PAIN SCALE Patient Name: Kem Holguin [facility] Readiness To Learn Motivation To Learn: Interested Instruction Provided To: Patient Learning Response Patient/Family Response: Verbalizes understanding of: PAIN MANAGEMENT-Effective strategies to manage pain in addition to pain medication Method of Instruction: Individual instruction Follow-Up Plan: Complete - No need for follow-up Electronically signed by: Maribeth Gamboa RN HISTORY PHYSICAL Observed: 06/26/2017 Status: COMPLETED Source: [place] 6:58 AM [facility] OTHER [facility] REPOSITORY O ID: [id number] Author: Girish Carlson (Res) Service: (none) Author Type: Resident Type: HANDP Filed: 06/26/2017 10:27 AM Note Text: Chief complaint: Left index finger injury Kem Holguin is a 36 year old male who presents to clinic after he jammed his finger catching a football ~ 1 week ago. 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 He noticed immediate deformity of the left index finger when he jammed it and he quickly repositioned it, feeling a few cracks while he did this. He visited the ED a couple days later and was placed into a splint. He denies N/T in the finger tip. No previous history of finger fractures. Denies pain anywhere else in the hand or arm. 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 No previous narcotic or IVDA. Reviewed nursing note and current pain scale. PAST MEDICAL HISTORY Diagnosis Date - Saucedo-Sue disease (HCC) PAST SURGICAL HISTORY Procedure Laterality Date - EXTENSIVE LEG SURGERY History reviewed. No pertinent family history. Social History Substance Use Topics - Smoking status: Never Smoker - Smokeless tobacco: Current User Types: Snuff - Alcohol use No Medications: Current Outpatient Prescriptions: ibuprofen 600 mg tablet Take 1 tablet by mouth every 6 hours as needed. cyclobenzaprine 10 mg tablet Take 1 tablet by mouth every 8 hours as needed. No current facility-administered medications for this visit. Allergies: ALLERGIES Allergen Reactions - Ibuprofen - Penicillins Other: See Comments ROS: 10 point review of systems reviewed and all within normal limits unless otherwise stated in HPI Physical Examination: Resp 27 Ht 6' 2 (1.88m) Wt 225 lb (102.1kg) BMI 28.88 kg/(m2). General Appearance: Well appearing, alert, in no acute distress, well-hydrated, well nourished.. Skin: Skin color, texture, turgor normal, no suspicious rashes or lesions. Chest : CTAANDP, no CVA Heart:Regular rate and rhythm Peripheral Pulses: Normal. Neurologic: Grossly intact Left Upper extremity: Swelling, ecchmyosis and mild angular deformity of index finger at the PIP joint. + TTP. Skin intact, no open wounds. Limited motion due to pain and swelling. SILT radial/ulnar aspect of index finger tip. Remaining hand intact, no TTP in other fingers or hand, SILT in median/radial/ulnar nerve distributions. Wiggles all fingers including index finger. 2+ radial pulse. Images: 3 views of the left hand show an oblique fracture with some intra-articular comminution involving the volar aspect of the base of index middle phalanx. Lateral view shows dorsal subluxation of the index PIP joint. Assessment and Plan: 36 year old male with left index finger PIP fracture-dislocation. Due to instability of left index PIP joint and intra-articular involvement, surgical intervention is recommended. This would include possible open reduction and internal fixation of middle phalynx fracture vs diana-hamate autograft reconstruction. The risks, benefits, limitations, and alternatives of this procedure were discussed with the patient and he agrees to proceed. All of his questions were answered to his satisfaction. 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 Patient also requests minimal narcotics due to history of substance abuse. Girish Carlson MD Orthopedic Surgery PGY-5 [facility] I agree with the above resident examination and assessment. I discussed and directed the plan of care yesterday and I personally examined Mr. Holguin today at the surgery center. This is a very severe articular fracture at the left index proximal interphalangeal joint. I recommend surgery. All attempts will be made for ORIF, but we discussed reconstruction with a diana hamate autograft in addition to a possible external fixator. The risks, benefits, alternatives and limitations of the procedure were reviewed and he elects to proceed. Danyel Keen MD OPERATIVE NO Observed: 06/26/2017 Status: COMPLETED Source: [place] 12:00 AM [facility] OTHER CAMPUS REPOSITORY O ID: [id number] Author: Danyel Keen Service: Hand Surgery Author Type: Physician Type: Operative Report Filed: 06/30/2017 6:13 AM Note Text: [facility] - Operative Report - ASC SURGEON: Danyel Keen MD PATIENT NAME: KEM HOLGUIN CSN: [id number] DATE OF SURGERY: 06/26/2017 DATE OF : 1980 SEX/AGE: M/36 PATIENT TYPE: A HOS[place] [facility] [place] [facility] LOCATION: [facility] [facility] [place] DATE OF SURGERY: 06/26/2017 SURGEON: Danyel Keen MD PREOPERATIVE DIAGNOSIS: Left index finger proximal interphalangeal joint articular fracture. POSTOPERATIVE DIAGNOSIS: Left index finger proximal interphalangeal joint articular fracture. OPERATION: Open reduction and internal fixation, left index proximal interphalangeal joint articular fracture. BLOCKER AND POLISHER GOLD WHEEL: Girish Carlson MD, PGY 5. ANESTHESIA: General plus digital block. INTRAVENOUS FLUIDS: 1200 mL crystalloid. ANTIBIOTICS: 900 mg clindamycin IV preoperatively. ESTIMATED BLOOD LOSS: Minimal. HILL: None. SPECIMENS: None. COMPLICATIONS: None. IMPLANTS USED: Synthes Modular Hand 1.3 mm screws x2. CONDITION TO PACU: Stable. OPERATIVE INDICATIONS: The patient is a 36-year-old xrsjm-vnop-mrfgjutp robyn godinez who sustained an axial injury to his left index finger while playing football. He was evaluated at the resident office and found to have a fracture- dislocation of the left index proximal interphalangeal joint. He was evaluated and the case was discussed with me. I recommended surgery given the incongruent joint. The risks, benefits, alternatives, and limitations of the procedure were reviewed extensively with the patient and I had personally met with him in the preoperative area and discussed his injury and my recommendations regarding the above. He considered these carefully and elected to proceed. No guarantees were stated nor implied. OPERATIVE PROCEDURE: The patient was identified in the preoperative holding area having a valid and signed consent sheet. All of his final questions were answered to his satisfaction. I personally marked the operative site, the left hand and index finger in indelible ink. A preoperative huddle was performed. The patient was taken back to the operating room. He was transferred to the operative table. Anesthesia controlled the head, neck, and airway from this point forward. All bony prominences were well padded. General anesthesia was induced. A hand table was brought on the left and well-padded left upper extremity tourniquet was placed. Time-out was performed all aspects of the surgical safety checklist were reviewed and agreed upon by all members of the surgical team. I began first with a preliminary cleanse of the entire left upper extremity with isopropyl alcohol. I then performed a digital block in standard fashion and utilized 10 mL of the above- mentioned anesthetic. We then performed a ChloraPrep pre-surgical preparation and 3-minute dry time was observed. The left upper extremity was then draped out in usual sterile fashion. I began first with the fluoroscopy unit and worked to gain a provisional reduction in the interest of determining the best course of approach. Gentle traction as well as compression of the articular fracture showed that the joint surface of the middle phalanx of the proximal interphalangeal joint could be anatomically reduced and therefore, I did not feel that a shotgun approach to the joint was necessary and instead relied on a lateral approach along the ulnar side of the digit. Esmarch bandage was utilized to exsanguinate and tourniquet was inflated to 250 mmHg. I planned a standard lateral approach. The skin was incised. The extensor mechanism was carefully identified and retracted dorsalward. The periosteum was incised and the axilla of the fracture was identified along the distal margin. I then used a bone tenaculum to carefully reduce and hold the fracture into place. After this was done, I checked this under fluoroscopy and found that the reduction was anatomic and confirming what was seen visually. We then utilized 1.3 mm screws from the Synthes set. These were done in positional technique and a 1.0 mm drill bit was utilized to drill 2 parallel screws across the fracture site. These were drilled measured and placed bicortically. These both had excellent purchase and compressed the fracture down nicely. There was anatomic alignment. Lateral view showed some volar avulsion fragments, but these were non-stabilizing. Final fluoroscopy images were obtained and the wound was thoroughly irrigated with normal saline. The wound was closed with simple sutures of 5-0 Prolene. The tourniquet was let down. There was gentle pressure held and there was no significant bleeding. Xeroform dressing was placed over the incision followed by sterile gauze and a dorsal blocking splint in partial flexion. The patient was then awakened from anesthesia without difficulty, transferred to recovery bed, and taken to the PACU in stable condition having tolerated the procedure well. Danyel Keen MD Orthopedic Surgery AE:ladonna /[id number] CNOV Observed: 06/25/2017 Status: COMPLETED Source: [place] 3:00 PM CLINIC OTHER CAMPUS REPOSITORY Office Visit ([facility]) KEM HOLGUIN ([id number]) 1980 M Date Time Provider Department 06/25/17 3:00 PM [place] [facility] During your visit today, we recorded the following information about you: Respiration Weight Height 27/minute 102.1 kg 1.88 m Nicolás Hagen (Tech) 06/26/2017 8:17 AM Signed REVIEW OF SYSTEMS: GENERAL: Well developed, well nourished. No acute distress PAIN: Negative for pain, history of chronic pain or current treatment for chronic pain conditions CARDIOVASCULAR: Negative for chest pain, leg swelling and palpations. MSK: joint pain yes SKIN: Negative for lesions, rash, itching, metal sensitivity NEURO: Negative for seizure, trauma, numbness/tingling of extremities. ENDOCRINE: Negative for Diabetes Type 1 and Type 2 HEMATOLOGY: Negative for excessive bleeding, clots, bleeding disorders. Girish Carlson (Res) 06/26/2017 8:17 AM Addendum Chief complaint: Left index finger injury Kem Holguin is a 36 year old male who presents to clinic after he jammed his finger catching a football ~ 1 week ago. 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 He noticed immediate deformity of the left index finger when he jammed it and he quickly repositioned it, feeling a few cracks while he did this. He visited the ED a couple days later and was placed into a splint. He denies N/T in the finger tip. No previous history of finger fractures. Denies pain anywhere else in the hand or arm. 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 No previous narcotic or IVDA. Reviewed nursing note and current pain scale. PAST MEDICAL HISTORY Diagnosis Date - Saucedo-Sue disease (HCC) PAST SURGICAL HISTORY Procedure Laterality Date - EXTENSIVE LEG SURGERY History reviewed. No pertinent family history. Social History Substance Use Topics - Smoking status: Never Smoker - Smokeless tobacco: Current User Types: Snuff - Alcohol use No Medications: Current Outpatient Prescriptions: ibuprofen 600 mg tablet Take 1 tablet by mouth every 6 hours as needed. cyclobenzaprine 10 mg tablet Take 1 tablet by mouth every 8 hours as needed. No current facility-administered medications for this visit. Allergies: ALLERGIES Allergen Reactions - Ibuprofen - Penicillins Other: See Comments ROS: 10 point review of systems reviewed and all within normal limits unless otherwise stated in HPI Physical Examination: Resp 27 Ht 6' 2 (1.88m) Wt 225 lb (102.1kg) BMI 28.88 kg/(m2). General Appearance: Well appearing, alert, in no acute distress, well-hydrated, well nourished.. Skin: Skin color, texture, turgor normal, no suspicious rashes or lesions. Chest : CTAANDP, no CVA Heart:Regular rate and rhythm Peripheral Pulses: Normal. Neurologic: Grossly intact Left Upper extremity: Swelling, ecchmyosis and mild angular deformity of index finger at the PIP joint. + TTP. Skin intact, no open wounds. Limited motion due to pain and swelling. SILT radial/ulnar aspect of index finger tip. Remaining hand intact, no TTP in other fingers or hand, SILT in median/radial/ulnar nerve distributions. Wiggles all fingers including index finger. 2+ radial pulse. Images: 3 views of the left hand show an oblique fracture with some intra-articular comminution involving the volar aspect of the base of index middle phalanx. Lateral view shows dorsal subluxation of the index PIP joint. Assessment and Plan: 36 year old male with left index finger PIP fracture-dislocation. Due to instability of left index PIP joint and intra-articular involvement, surgical intervention is recommended. This would include possible open reduction and internal fixation of middle phalynx fracture vs diana-hamate autograft reconstruction. The risks, benefits, limitations, and alternatives of this procedure were discussed with the patient and he agrees to proceed. All of his questions were answered to his satisfaction. 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 Patient also requests minimal narcotics due to history of substance abuse. Girish Carlson MD Orthopedic Surgery PGY-5 [facility] I agree with the above resident examination and assessment. I discussed and directed the plan of care yesterday and I personally examined Mr. Holguin today at the surgery center. This is a very severe articular fracture at the left index proximal interphalangeal joint. I recommend surgery. All attempts will be made for ORIF, but we discussed reconstruction with a diana hamate autograft in addition to a possible external fixator. The risks, benefits, alternatives and limitations of the procedure were reviewed and he elects to proceed. Danyel Keen MD Referring Provider: SELF [[id number]] Allergies As of Date: 06/25/2017 Noted Allergy Reaction IBUPROFEN 05/03/2007 PENICILLINS 06/20/2017 14 - Other: See Comments Date Reviewed: 06/25/2017 Reviewed by: Flakito Hagen (Res) - Fully Assessed Reason for Visit: Musculoskeletal Problem [69] Cmt: Lt. index finger Primary Visit Diagnosis:Closed fracture dislocation of proximal interphalangeal (PIP) joint of finger, initial encounter [S62.619A] Prescriptions as of 06/25/2017 Sig: IBUPROFEN 600 MG TABLET Take 1 tablet by mouth every * CYCLOBENZAPRINE 10 MG TABLET Take 1 tablet by mouth every * Problem List As Of Date: 06/25/2017 (None) Level of Service: NEW PATIENT VISIT LEVEL 2 [78819] Disposition: Return in about 1 day (around 06/26/2017) for surgery. LOS history recorded Follow-up and Disposition History Recorded Encounter Status:Closed by GIRISH CARLSON MD on 06/26/17 Chart Close Cosign Required by: Danyel Keen[] PROGRESS Observed: 06/25/2017 Status: COMPLETED Source: [place] 2:57 PM CLINIC OTHER CAMPUS REPOSITORY O ID: [id number] Author: Nicolás Hagen (Tech) Service: (none) Author Type: Workers' Compensation Commissioner Type: Progress Notes Filed: 06/26/2017 8:17 AM Note Text: REVIEW OF SYSTEMS: GENERAL: Well developed, well nourished. No acute distress PAIN: Negative for pain, history of chronic pain or current treatment for chronic pain conditions CARDIOVASCULAR: Negative for chest pain, leg swelling and palpations. MSK: joint pain yes SKIN: Negative for lesions, rash, itching, metal sensitivity NEURO: Negative for seizure, trauma, numbness/tingling of extremities. ENDOCRINE: Negative for Diabetes Type 1 and Type 2 HEMATOLOGY: Negative for excessive bleeding, clots, bleeding disorders. CNCO Observed: 06/25/2017 Status: COMPLETED Source: [place] 12:00 AM CLINIC OTHER CAMPUS REPOSITORY Letter Text [facility] [address] [place] [phone] Clinic [phone] Fax [email or web address] NOTIFICATION OF SURGERY Patient Name: Kem Holguin : 1980 Orthopedic Surgeon: Danyel Keen MD Date of Surgery: 06/26/17 ARRIVE AT 10 AM SURGERY AT 12 PM Location: [place] [id number] Procedure: ORIF LEFT INDEX FINGER FRACTURE REPAIR SURGERY GUIDE GIVEN TO PATIENT W/ INSTRUCTIONS COMMENTS: NPO AFTER MIDNIGHT 06/25/17 DATE: June 25, 2017 Thank you for your help. HOSP Observed: 06/25/2017 Status: COMPLETED Source: [place] 12:00 AM [facility] OTHER [place] REPOSITORY Patient:Kem Holguin MRN: <[id number]> Height:6' 2(1.88 m) Weight:225 lb (102.059 kg) Outpatient Medications as of 06/26/17: esomeprazole (NEXIUM) 20 mg capsule ibuprofen 600 mg tablet cyclobenzaprine 10 mg tablet Admission/Clinic Administered Medications as of 06/26/17: lactated ringers infusion clindamycin 900 mg in D5W 50 mL (CLEOCIN) lactated ringers infusion fentaNYL 50 mcg/mL 25 mcg injection (SUBLIMAZE) oxyCODONE IR 5 mg tab(s) (ROXICODONE) ondansetron (PF) 4 mg injection (ZOFRAN) HYDROmorphone 0.5 mg injection (DILAUDID) Problem List: Closed fracture dislocation of proximal interphalangeal joint of finger, initial encounter [S67.018T] Allergies: Ibuprofen Penicillins Date Verified: 06/26/17 Lab Values No results within the last 30 days for the following basenames: K,HCT Progress Notes ([facility]): Nicolás Hagen (Tech) 06/26/2017 8:17 AM Signed REVIEW OF SYSTEMS: GENERAL: Well developed, well nourished. No acute distress PAIN: Negative for pain, history of chronic pain or current treatment for chronic pain conditions CARDIOVASCULAR: Negative for chest pain, leg swelling and palpations. MSK: joint pain yes SKIN: Negative for lesions, rash, itching, metal sensitivity NEURO: Negative for seizure, trauma, numbness/tingling of extremities. ENDOCRINE: Negative for Diabetes Type 1 and Type 2 HEMATOLOGY: Negative for excessive bleeding, clots, bleeding disorders. Girish Carlson (Res) 06/26/2017 8:17 AM Addendum Chief complaint: Left index finger injury Kem Holguin is a 36 year old male who presents to clinic after he jammed his finger catching a football ~ 1 week ago. 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 He noticed immediate deformity of the left index finger when he jammed it and he quickly repositioned it, feeling a few cracks while he did this. He visited the ED a couple days later and was placed into a splint. He denies N/T in the finger tip. No previous history of finger fractures. Denies pain anywhere else in the hand or arm. 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 No previous narcotic or IVDA. Reviewed nursing note and current pain scale. PAST MEDICAL HISTORY Diagnosis Date - Saucedo-Sue disease (HCC) PAST SURGICAL HISTORY Procedure Laterality Date - EXTENSIVE LEG SURGERY History reviewed. No pertinent family history. Social History Substance Use Topics - Smoking status: Never Smoker - Smokeless tobacco: Current User Types: Snuff - Alcohol use No Medications: Current Outpatient Prescriptions: ibuprofen 600 mg tablet Take 1 tablet by mouth every 6 hours as needed. cyclobenzaprine 10 mg tablet Take 1 tablet by mouth every 8 hours as needed. No current facility-administered medications for this visit. Allergies: ALLERGIES Allergen Reactions - Ibuprofen - Penicillins Other: See Comments ROS: 10 point review of systems reviewed and all within normal limits unless otherwise stated in HPI Physical Examination: Resp 27 Ht 6' 2 (1.88m) Wt 225 lb (102.1kg) BMI 28.88 kg/(m2). General Appearance: Well appearing, alert, in no acute distress, well-hydrated, well nourished.. Skin: Skin color, texture, turgor normal, no suspicious rashes or lesions. Chest : CTAANDP, no CVA Heart:Regular rate and rhythm Peripheral Pulses: Normal. Neurologic: Grossly intact Left Upper extremity: Swelling, ecchmyosis and mild angular deformity of index finger at the PIP joint. + TTP. Skin intact, no open wounds. Limited motion due to pain and swelling. SILT radial/ulnar aspect of index finger tip. Remaining hand intact, no TTP in other fingers or hand, SILT in median/radial/ulnar nerve distributions. Wiggles all fingers including index finger. 2+ radial pulse. Images: 3 views of the left hand show an oblique fracture with some intra-articular comminution involving the volar aspect of the base of index middle phalanx. Lateral view shows dorsal subluxation of the index PIP joint. Assessment and Plan: 36 year old male with left index finger PIP fracture-dislocation. Due to instability of left index PIP joint and intra-articular involvement, surgical intervention is recommended. This would include possible open reduction and internal fixation of middle phalynx fracture vs diana-hamate autograft reconstruction. The risks, benefits, limitations, and alternatives of this procedure were discussed with the patient and he agrees to proceed. All of his questions were answered to his satisfaction. 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 Patient also requests minimal narcotics due to history of substance abuse. Girish Carlson MD Orthopedic Surgery PGY-5 [facility] I agree with the above resident examination and assessment. I discussed and directed the plan of care yesterday and I personally examined Mr. Holguin today at the surgery center. This is a very severe articular fracture at the left index proximal interphalangeal joint. I recommend surgery. All attempts will be made for ORIF, but we discussed reconstruction with a diana hamate autograft in addition to a possible external fixator. The risks, benefits, alternatives and limitations of the procedure were reviewed and he elects to proceed. Danyel Keen MD Previous Version HAND 3V PA/LAT/OBL Observed: 06/20/2017 Status: F Source: [facility] 5:57 PM [facility] REPOSITORY Performed at [facility] APPROVED BY: SALLY PERALTA MD THREE VIEWS, LEFT HAND DATE: 06/20/2017 17:55 HISTORY: Left index finger crush injury. COMPARISON: None ENCOUNTER: Not applicable TECHNIQUE: Three radiographs of the left hand including AP, lateral and oblique views were obtained. RESULT: There is mildly comminuted acute minimally displaced oblique fracture involving the index finger middle phalanx with fracture line extending to the base of the middle phalanx. There is mild posterior s ubluxation of the middle phalanx at the proximal interphalangeal joint. Fracture line appears to extend to the proximal interphalangeal joint space. There is soft tissue swelling about the fracture site. No discrete large soft tissue defects, gas or radiopaque foreign bodies. Joint spaces otherwise maintained. No discrete suspicious osseous lesions. IMPRESSION: Acute mildly comminuted oblique fracture involving the index finger middle phalanx with mild posterior subluxation of the middle phalanx at the proximal interphalangeal joint, possibly representing liga mentous instability. Please correlate clinically. ED PROV NOTE Observed: 06/20/2017 Status: COMPLETED Source: [place] 5:39 PM CLINIC OTHER CAMPUS REPOSITORY O ID: [id number] Author: Kim Ortiz (Rigo), RIGO Service: Emergency Medicine Author Type: Physician Career Manager Type: ED Provider Notes Filed: 06/20/2017 6:36 PM Note Text: ED Provider Note Patient Name: Kem Holguin SERVICE DATE: 06/20/17 History Patient presents with: Hand Pain Patient is a 36-year-old male who was playing catch with a football when he jumped up near to catch the ball is left index finger went laterally at the PIP joint. Patient states that it stayed in that position and he grabbed a hold of finger and yanked it out and straighten it. Patient states when he did that he heard a bunch of cracks and pops. He comes in complaining of increased pain swelling with significant ecchymosis throughout the finger. He denies any other injury but states that he has pain all the way back through the MCP. History provided by: Patient and spouse automotive parts interpreter used: No PAST MEDICAL HISTORY Diagnosis Date - Saucedo-Sue disease (HCC) PAST SURGICAL HISTORY Procedure Laterality Date - EXTENSIVE LEG SURGERY No family history on file. Social History Social History Main Topics - Smoking status: Never Smoker - Smokeless tobacco: Not on file - Alcohol use No - Drug use: No - Sexual activity: Yes ALLERGIES Allergen Reactions - Penicillins Other: See Comments Review of Systems Constitutional: Negative. HENT: Negative. Eyes: Negative. Respiratory: Negative. Cardiovascular: Negative. Gastrointestinal: Negative. Musculoskeletal: Positive for joint swelling. Skin: Negative. Neurological: Negative. Psychiatric/Behavioral: Negative. All other systems reviewed and are negative. Physical Exam BP 121/87 Pulse 74 Temp (Src) 97.3 (Oral) Resp 18 Ht 6' 2 (1.88m) Wt 225 lb (102.1kg) SpO2 99% BMI 28.88 kg/(m2). Physical Exam Constitutional: He is oriented to person, place, and time. He appears well-developed and well-nourished. HENT: Head: Normocephalic and atraumatic. Right Ear: External ear normal. Left Ear: External ear normal. Nose: Nose normal. Eyes: Conjunctivae and EOM are normal. Pupils are equal, round, and reactive to light. Neck: Normal range of motion. Neck supple. Cardiovascular: Normal rate. Pulmonary/Chest: Effort normal. Musculoskeletal: Left hand: He exhibits decreased range of motion, tenderness, bony tenderness and swelling. He exhibits normal capillary refill, no deformity and no laceration. Hands: Neurological: He is alert and oriented to person, place, and time. He has normal reflexes. Skin: Skin is warm and dry. Psychiatric: He has a normal mood and affect. His behavior is normal. Judgment and thought content normal. Nursing note and vitals reviewed. Diagnostic Testing ED Labs Ordered and Reviewed - No data to display Results for orders placed or performed during the hospital encounter of 06/20/17 XR HAND GENERAL 3V PA/LAT/OBL LT Result Value Ref Range Loan [employer]or THREE VIEWS, LEFT HAND DATE: 06/20/2017 17:55 HISTORY: Left index finger crush injury. COMPARISON: None ENCOUNTER: Not applicable TECHNIQUE: Three radiographs of the left hand including AP, lateral and oblique views were obtained. RESULT: There is mildly comminuted acute minimally displaced oblique fracture involving the index finger middle phalanx with fracture line extending to the base of the middle phalanx. There is mild posterior subluxation of the middle phalanx at the proximal interphalangeal joint. Fracture line appears to extend to the proximal interphalangeal joint space. There is soft tissue swelling about the fracture site. No discrete large soft tissue defects, gas or radiopaque foreign bodies. Joint spaces otherwise maintained. No discrete suspicious osseous lesions. IMPRESSION: Acute mildly comminuted oblique fracture involving the index finger middle phalanx with mild posterior subluxation of the middle ph alanx at the proximal interphalangeal joint, possibly representing ligamentous instability. Please correlate clinically. Procedures Medical Decision Making MDM Finger contusion, fractured finger, finger dislocation ED Course / Clinical Impression Clinical Impressions as of Jun 20 1833 Closed displaced fracture of distal phalanx of left index finger, initial encounter Plan patient's x-ray shows a comminuted fracture of the middle phalanx base. This is been explained to the patient as well as shown him the x-ray. Patient will be put in a finger splint and hand specialist follow-up. He is been explained to the patient is very well may need to be repaired. The Patient was DISCHARGED: Counseled patient and spouse regarding radiology results AND need for follow-up. Discharged home with verbal and written instructions. They were instructed to return as needed for persistent or worsening symptoms or any new concerns. Given a prescription for the following medication(s): Ramsay Condition at time of disposition: stable SIGNATURE: ANITA Saravia Kerry D (Rigo)RIGO 06/20/17 183 ED NOTE Observed: 06/20/2017 Status: COMPLETED Source: [place] 5:30 PM CLINIC OTHER CAMPUS REPOSITORY HNO ID: [id number] Author: Zoie Carvalho (Rn), RN Service: Emergency Medicine Author Type: Registered Nurse Type: ED Notes Filed: 06/20/2017 5:32 PM Note Text: Stated was playing catch with a football a few days ago; Stated ball hit left index finger and pt stated it was sideways; Pt stated got it to straighten back out but heard a bunch of crunches; (+) bruising and swelling; CHEST SINGLE VIEW Observed: 04/01/2017 Status: F Source: [facility] PORT PA OR AP 1:40 PM REPOSITORY DATE OF EXAM: Apr 01 2017 1:40PM CLINICAL HISTORY/ Patient Name: KEM HOLGUIN STUDY: CHEST SINGLE VIEW PORT PA OR AP; 04/01/2017 1:40 pm INDICATION: Chest Pain. COMPARISON: None. ACCESSION NUMBER(S): [id number] ORDERING CLINICIAN: KEILA GÓMEZ FINDINGS: CARDIOMEDIASTINAL SILHOUETTE AND VASCULATURE: Cardiac size:Within normal limits considering technique Aortic shadow: Within normal limits considering technique Mediastinal contours: Within normal limits considering technique Pulmonary vasculature: Within normal limits without definite congestion LUNGS: Lungs are clear. ABDOMEN AND OTHER FINDINGS: No remarkable upper abdominal findings. BONES: No acute osseous changes. CONCLUSION: IMPRESSION: 1. No active cardiopulmonary disease. CBC WITH DIFFERENTIAL Collected: 04/01/2017 Status: F Source: [facility] 1:11 PM HEALTHCARE REPOSITORY TYPE CODE TESTS RESULT OUT OF REFERENCE UNITS RANGE LAB WBCIR(LOIN 4.2-11.0 10*3/uL C) WBC 6.0 LAB RBC(LOINC) 4.08-6.37 10*6/uL RBC 4.84 LAB HGB(LOINC) 12.8-17.7 g/dL HGB 15.1 LAB HCT(LOINC) 38.4-54.9 % HCT 44.1 LAB MCV(LOINC) 83.3-98.2 fL MCV 91.1 LAB MCH(LOINC) 27.5-32.9 pg MCH 31.2 LAB MCHC(LOINC 30.5-35.4 g/dL ) MCHC 34.2 LAB RDWCV(LOIN 12.0-15.4 % C) RDW CV 12.4 LAB RDWSD(LOIN 39.3-48.6 fL C) RDW SD 40.9 LAB PLTC(LOINC 155-404 10*3/uL ) Platelet Count 233 LAB MPV(LOINC) 9.9-12.1 fL MPV 10.4 LAB NRBCR(LOIN /100{WBCs} C) NRBC Automated 0.0 LAB NRBCA(LOIN 10*3/uL C) NRBC Absolute 0.00 LAB ASEGR(LOIN 2.22-7.53 10*3/uL C) Neutrophils Absolute 2.68 LAB ALYMR(LOIN 0.40-2.84 10*3/uL C) Lymphocytes Absolute 2.48 LAB AMONR(LOIN 0.25-1.33 10*3/uL C) Monocytes Absolute 0.70 LAB AEOSR(LOIN 0.01-0.46 10*3/uL C) Eosinophils Absolute 0.07 LAB ABASR(LOIN 0.01-0.09 10*3/uL C) Basophils Absolute 0.04 LAB IGRA(LOINC % ) Immature Granulocytes 0.3 LAB IGR(LOINC) 0.00-0.21 10*3/uL Imm Grans Absolute 0.02 LAB SEGC(LOINC 46.2-79.1 % ) Low Neutrophils 44.7 LAB LYMPC(LOIN 9.4-41.1 % C) Lymphocytes High 41.4 LAB MONOC(LOIN 3.0-16.2 % C) Monocytes 11.7 LAB EOSC(LOINC 0.0-6.7 % ) Eosinophils 1.2 LAB BASOC(LOIN 0.0-1.3 % C) Basophils 0.7 Performed By: #### [id number] #### [facility] [address] [place] [address] PARTIAL THROMBOPLASTIN Collected: 04/01/2017 Status: F Source: [facility] TIME 1:11 PM HEALTHCARE REPOSITORY TYPE CODE TESTS RESULT OUT OF REFERENCE UNITS RANGE LAB PTT(LOINC) 22.1-35.3 sec Partial Thromboplastin Time 27.5 Result Comment: Heparin Therapeutic Range: 71 - 97 sec Performed By: #### [id number] #### [facility] [address] [place] [address] COMPREHENSIVE METABOLIC Collected: 04/01/2017 Status: F Source: [facility] PANEL 1:11 PM HEALTHCARE REPOSITORY TYPE CODE TESTS RESULT OUT OF REFERENCE UNITS RANGE LAB GLU(LOINC) 70-100 mg/dL Glucose 86 LAB UREA(LOINC 6-23 mg/dL ) Urea Nitrogen 16 LAB CREAT(LOIN 0.50-1.30 mg/dL C) Creatinine 1.00 LAB GFR(LOINC) Glomerular >60 Filtration Rate Result Comment: Interpretation for Chronic Kidney Disease: Stages 1&2 >60 Healthy or potential kidney damage. Mild decrease of GFR. Stage 3 30-59 Moderate decrease of GFR. Stage 4 15-29 Severe decrease of GFR. Stage 5 <15 Kidney failure or on dialysis. LAB CA(LOINC) 8.6-10.3 mg/dL Calcium 9.0 LAB SOD(LOINC) 136-145 mmol/L Sodium 138 LAB POT(LOINC) 3.5-5.1 mmol/L Potassium 3.6 LAB CHLOR(LOINC) 98-107 mmol/L Chloride 104 LAB BICAR(LOINC) 21-32 mmol/L Bicarbonate 27 LAB ALB(LOINC) 3.4-5.0 g/dL Albumin 4.5 LAB BILIT(LOINC) 0.0-1.2 mg/dL Bilirubin, Total 0.5 LAB ALP(LOINC) 45-117 U/L Alkaline Low Phosphatase 40 LAB TP(LOINC) 6.4-8.2 g/dL Total Protein 7.2 LAB ALT(LOINC) 10-52 U/L ALT (SGPT) 40 LAB AST(LOINC) 13-39 U/L AST (SGOT) 22 LAB ANGAP(LOINC) 10-20 mmol/L Anion Gap 11 LAB AGRAT(LOINC) 0.9-2.4 A/G Ratio 1.7 LAB BCRAT(LOINC) 5-25 Urea/Creatinine Ratio 16 Performed By: #### [id number] #### [facility] [address] [place] [address] C-REACTIVE PROTEIN, Collected: 04/01/2017 Status: F Source: [facility] HIGH SENSITIVITY 1:11 PM HEALTHCARE REPOSITORY TYPE CODE TESTS RESULT OUT OF REFERENCE UNITS RANGE LAB HSCRP(LOIN mg/L C) C-Reactive Protein, High 0.90 Sensitivity Result Comment: < 1.0 LOW RELATIVE RISK OF CVD 1.0 - 3.0 AVERAGE RELATIVE RISK OF CVD > 3.0 HIGH RELATIVE RISK OF CVD Performed By: #### [id number] #### [facility] [address] [place] [address] MAGNESIUM Collected: 04/01/2017 Status: F Source: [facility] 1:11 PM REPOSITORY TYPE CODE TESTS RESULT OUT OF REFERENCE UNITS RANGE LAB MG(LOINC) 1.6-2.4 mg/dL Magnesium 1.8 Performed By: #### [id number] #### [facility] [address] [place] [address] TROPONIN Collected: 04/01/2017 Status: F Source: [facility] 1:11 PM REPOSITORY TYPE CODE TESTS RESULT OUT OF REFERENCE UNITS RANGE LAB TROP(LOINC) 0.000-0.040 ng/mL Troponin <0.020 Result Comment: <0.04 : Negative 0.04 - 0.50 : Possible Cardiac Damage >0.50 : Consistent with Cardiac Damage Performed By: #### [id number] #### [facility] [address] [place] [address] PROTHROMBIN TIME Collected: 04/01/2017 Status: F Source: [facility] 1:11 PM HEALTHCARE REPOSITORY TYPE CODE TESTS RESULT OUT OF RANGE REFERENCE UNITS LAB PTI(LOINC) 9.8-12.7 sec PT 11.5 Result Comment: PLEASE NOTE NEW REFERENCE RANGE EFFECTIVE 2017 LAB INR(LOINC) 0.90-1.10 INR 1.04 Result Comment: PLEASE NOTE NEW REFERENCE RANGE EFFECTIVE 2017 Performed By: #### [id number] #### [facility] [address] [place] [address] B NATRIURETIC PEPTIDE Collected: 04/01/2017 Status: F Source: [facility] 1:11 PM HEALTHCARE REPOSITORY TYPE CODE TESTS RESULT OUT OF REFERENCE UNITS RANGE LAB BNP(LOINC) <100 pg/mL B Natriuretic 14 Peptide Performed By: #### [id number] #### [facility] [address] [place] [address] DRUG SCREEN SERUM Collected: 03/10/2017 Status: F Source: [facility] (NONFORENSIC) 1:51 PM HEALTHCARE REPOSITORY TYPE CODE TESTS RESULT OUT OF RANGE REFERENCE UNITS LAB DRNFS(LOIN C) Abnormal Drug Positive Screen Serum (Nonforensic ) Result Comment: Comprehensive screen is positive for: Caffeine For medical purposes only. Results unconfirmed. INTERPRETIVE INFORMATION: Drug Screen (Nonforensic), Ser The following drugs or drug classes may be detected: Acetaminophen Alcohols Barbiturates Benzodiazepines Carbamazepine Carisoprodol Disopyramide Meprobamate Primidone Phenytoin Theophylline Salicylate Tricyclic and other antidepressants Performed by [email or web address], [address] [place] [address] [id number] [email or web address], Fermin Norwood MD - Lab. Director Performed By: #### OTTO #### [address] [address] DRUGS OF ABUSE (9) Collected: 03/10/2017 Status: F Source: [facility] HEALTHCARE PLASMA W/RFX TO 1:51 PM REPOSITORY CONFIRM TYPE CODE TESTS RESULT OUT OF REFERENCE UNITS RANGE LAB DCPAM(LOINC Cutoff 30 ng/mL ) Negative Amphetamines , Plasma LAB DCPBA(LOINC Cutoff 75 ng/mL ) Negative Barbiturates , Plasma LAB DCPBE(LOINC Cutoff 75 ng/mL ) Positive Benzodiazepi abhishek, Plasma Result Comment: If the screen is positive, then confirmation by mass spectrometry will be added. Additional charges will apply. Unconfirmed positive may be useful for medical purposes, but does not meet forensic standards. LAB DCPCP(LOINC) Cutoff 30 ng/mL Cocaine, Negative Plasma LAB DCPMT(LOINC) Cutoff 40 ng/mL Methadone, Negative Plasma LAB DCPOP(LOINC) Cutoff 30 ng/mL Opiates, Negative Plasma LAB DCPPH(LOINC) Cutoff 15 ng/mL Phencyclidine, Negative Plasma LAB DCPCA(LOINC) Cutoff 30 ng/mL Cannabinoids, Negative Plasma LAB DCPCM(LOINC) Drug Screen See Note Comments Result Comment: INTERPRETIVE INFORMATION: Drug Screen 9 Panel, Serum or Plasma - Immunoassay Screen with Reflex to Mass Spectrometry Confirmation/Quantitation 1. Methodology: Qualitative Immunoassay Screen 2. Drugs/Drug classes reported as Positive are automatically reflexed to mass spectrometry confirmation/quantitation testing. An immunoassay unconfirmed positive screen result may be useful for medical purposes but does not meet forensic standards. 3. The absence of expected drug(s) and/or drug metabolite(s) may indicate non-compliance, inappropriate timing of specimen collection relative to drug administration, poor drug absorption, or limitations of testing. The concentration at which the screening test can detect a drug or metabolite varies within a drug class. Specimens for which drugs or drug classes are detected by the screen are automatically reflexed to a second, more specific technology (mass spectrometry). The concentration value must be greater than or equal to the cutoff to be reported as positive. Interpretive questions should be directed to the laboratory. 4. For medical purposes only; not valid for forensic use. Test developed and characteristics determined by [email or web address]. See Compliance Statement B: Close/ Performed by [email or web address], [address] [place] [address] [email or web address], Fermin Norwood MD - Lab. Director LAB DCOXY(LOINC) Cutoff 30 ng/mL Oxycodone, Negative Plasma LAB DCME2(LOINC) Cutoff 30 ng/mL Methamphetamine, Negative Plasma LAB DCPBR(LOINC) Cutoff 1 ng/mL Buprenophine, Negative Plasma Performed By: #### [id number] #### [address] [address] BENZODIAZEPINES Collected: 03/10/2017 Status: F Source: [facility] CONF/QUANT, PLASMA 1:51 PM HEALTHCARE REPOSITORY TYPE CODE TESTS RESULT OUT OF REFERENCE UNITS RANGE LAB DIAP(LOINC) ng/mL Diazepam, <5 Plasma Result Comment: INTERPRETIVE INFORMATION: Benzodiazepines, Serum or Plasma, Quantitative Methodology: Quantitative Liquid Chromatography-Tandem Mass Spectrometry. Positive cutoff: 20 ng/mL unless specified below: Diazepam 5 ng/mL Alprazolam 5 ng/mL Alpha-hydroxyalprazolam 5 ng/mL Clonazepam 5 ng/mL 7-aminoclonazepam 5 ng/mL For medical purposes only; not valid for forensic use. Identification of specific drug(s) taken by specimen donor is problematic due to common metabolites, some of which are prescription drugs themselves. The absence of expected drug(s) and/or drug metabolite(s) may indicate non-compliance, inappropriate timing of specimen collection relative to drug administration, poor drug absorption, or limitations of testing. The concentration value must be greater than or equal to the cutoff to be reported as positive. Interpretive questions should be directed to the laboratory. Test developed and characteristics determined by [email or web address]. See Compliance Statement B: Close/ LAB NORDP(LOINC) ng/mL Nordiazepam, Plasma <20 LAB OXAP(LOINC) ng/mL Oxazepam, Plasma <20 LAB TEMP2(LOINC) ng/mL Temazepam, Plasma <20 LAB LORP(LOINC) ng/mL Lorazepam, Plasma <20 LAB ALPP(LOINC) ng/mL Alprazolam, Plasma <5 LAB ALHYP(LOINC) ng/mL Alpha-hydroxyalpraz olam, Plasma <5 LAB CLONP(LOINC) ng/mL Clonazepam, Plasma <5 LAB 7AMP(LOINC) ng/mL 7-aminoclonazepam, Plasma <5 LAB MIDP(LOINC) ng/mL Midazolam, Plasma <20 LAB CHLDX(LOINC) ng/mL Chlordiazepoxide, Plasma <20 LAB ALPHM(LOINC) ng/mL Alpha-hydroxymidazo arana, Plasma <20 Result Comment: Performed by [email or web address], [address] [place] [id number] [email or web address], Fermin Norwood MD - Lab. Director Performed By: #### [id number] #### [facility] [address] [place], [place] [id number] ALLERGIES ALLERGIES DATE TYPE / CODE NAME / CODE REACTION SEVERITY SOURCE 02/03/2018 Drug Penicillins/[id number] Unknown SV [place] Allergy/416 0476(RXNORM) Community 178460([facility] ED CT) Repository 02/03/2018 Drug ibuprofen/[id number] Unknown SV [place] Allergy/416 77(RXNORM) Community 337897([facility] ED CT) Repository 01/17/2018 Drug No Known Unknown [place] Allergy/416 [facility]ies/[id number] 411589([place] [address](RXNORM) [facility] ED CT) Repository 06/20/2017 Drug PENICILLINS OTHER: SEE C [facility] Class/50327 Other [place] 1003(SNOMED Repository CT) 05/03/2007 DRUG IBUPROFEN [facility] INGREDI/419 [place] 857501[facility] NG/[id number] IBUPROFEN [facility] Repository NG/80147936 PENICILLINS [facility] 6([facility] CT) Repository ENCOUNTERS ENCOUNTERS ADMIT/DISCHARGE ACCOUNT NUMBER ADMITTING ENCOUNTER LOCATION SOURCE CLASS 02/03/2018/ [id number] Ambulatory BMSBuilding:B [place] 018 MS.BIM [facility] Repository 01/17/2018/ [id number] Emergency Pili [place] 018 [facility] ing:ED Repository 12/12/2017/ [id number] Emergency BBuilding:LIBRADOO [place] 018 [facility] Repository 12/10/2017/ [id number] Emergency BBuilding:ERO [place] 018 [facility] Repository 12/05/2017/ [id number] Emergency BBuilding:ERO [place] 018 [facility] Repository 12/05/2017/ [id number] Ambulatory ZULEIKA [place] [address] [facility] ing:[facility] Repository 12/04/2017/ [id number] Emergency BBuilding:ERO [place] 018 [facility] Repository 11/09/2017/ [id number] Emergency [address] Main [place] Repository 08/08/2017/ [id number] Ambulatory [address] Other [place] Repository 08/08/2017/ [id number] [address] g:AKORTH 07/16/2017/ [id number] Ambulatory [address] Other [place] Repository 07/16/2017/ [id number] Ambulatory [address] CENTERBuildin Repository g:AKORTH 07/04/2017 [id number] Ambulatory [facility] CENTERBuildin Repository g:AKORTH 06/26/2017/ [id number] [place], Ambulatory [address] Other [place] Repository 06/26/2017/ [id number] [place], [address]patient [address] Rep[address] g:ASCRoom: POOLBed: 10 06/25/2017/ [id number] Ambulatory [address] Other [place] Repository 06/25/2017/ [id number] [address] g:AKORTH 06/20/2017/ [id number] Emergency [address] Other [place] Repository 06/20/2017/ [id number] [address] g:AKEDRoom: INBed: 35 04/01/2017/ [id number] Emergency [address] SYSTEMSBuildi Repository ng:EERRoom: NS28Tth: ER20-A 04/01/2017 [id number] Ambulatory [address] [place] [address] Repository 03/10/2017 [id number] Ambulatory [facility] SYSTEMS Repository PAYERS PAYERS ENCOUNTER GUARANTOR PAYER SUBSCRIBER SOURCE 02/03/2018 KEM [id number] RONY Insurance:CARESOURC DAMIRDOB: [facility]: [id number] [address]Cam: (288) [id number] Repository [phone] () Date:2018-02-02[address]ATTN: [place] [address]MR: 02/03/2018 Secondary NOT GIVENUNK [place] Insurance:SELF PAY [facility] Number: Effective Repository Date:2018-02-03 01/17/2018 KEM P Primary KEM Alejandre [id number] W Insurance:CARESOURCEP ZELENKADOB: [facility] Number: [id number] [address]Kzv: [id number] Repository Date:2018-01-17P O () [address]ATTN: [place] [address]MV: 01/17/2018 Secondary NOT GIVENUNK [place] Insurance:SELF PAY [facility] Number: Effective Repository Date:2018-01-17 12/12/2017 KEM P ZELENKA [facility] IIIDOB: Insurance:CARESOURCE IIIDOB: [facility] MEDICAIDPolicy [id number] Repository [facility] Number: [address] [place], [place] [id number], [place] [address]Baq: (330) Date:2017-12-12 06268Fnh: (HP) [id number] [phone] Name:XPO Box (HP)Tel: 000) [address], [place] 000[address] () [address]EA: 12/10/2017 KEM P ZELENKA Primary KEM P DAMIR [facility] IIIDOB: Insurance:CARESOURCE IIIDOB: [facility] MEDICAIDPolicy [id number] Repository [facility] Number: [address] [place], [place] [id number] [place], [place] [address]Vbb: (330) Date:2017-12-10 84125Ecd: (HP) [id number] [phone] Name:XPO Box (HP)Tel: (000) [place], [place] [address] (WP) [address]TD: 12/05/2017 KEM P ZELENKA Primary KEM P [facility] IIIDOB: [facility]OB: [facility] MEDICAIDPolicy [id number] Repository [facility] Number: [address] [place], [place] [id number] [place], [place] [address]Sun: (330) Date:2017-12-05Tel: (HP) [id number] [phone] Name:XPO Box (HP)Tel: (000) [place], [place] [address] (WP) [address]TH: 12/05/2017 KEM P LASHAELENKA Primary [facility] IIIDOB: Insurance:CARESOURCE IIIDOB: [facility] MEDICAIDPolicy [id number] Repository [facility] Number: 1 [facility] [place] [id number] [place], [place] [address]Pah: (330) Date:2017-12-05Tel: (HP) [id number] [phone] Name:XPO Box (HP)Tel: (000) [place], [place] 000[address] (WP) [address]PN: 12/04/2017 KEM P ZELENKA Primary KEM P [facility] IIIDOB: Insurance:CARESOURCE IIIDOB: [facility] MEDICAIDPolicy [id number] Repository [facility] Number: 1 [facility] [place]FR[place]ITZ[place], [place] [id number] [place], [place] [address]Jzv: (330) Date:2017-12-04Tel: (HP) [id number] [phone] Name:XPO Box (HP)Tel: (000) [address], [place] 000[address] (RB) [phone]: 08/08/2017 KEM ZELENKADOB: Primary KEM ZELENKADOB: [facility] [id number] Insurance:[facility] [id number] [facility] MEDICAIDPolicy Repository [place] Number: [address]Qcv: 234 [id number] [phone] (HP) Date: 07/16/2017 KEM ZELENKADOB: Primary KEM ZELENKADOB: [facility] [id number] Insurance:[facility] [id number] [facility] MEDICAIDPolicy Repository [place] Number: [address]Aut: (234) [id number] [phone] (HP) Date: 07/04/2017 KEM ZELENKADOB: Primary KEM ZELENKADOB: [facility] Insurance:[facility] [id number] [facility] MEDICAIDPolicy Repository [place] Number: [address]Fgr: (234) [id number] [phone] (HP) Date: 06/26/2017 KEM ZELENKADOB: Primary KEM ZELENKADOB: [facility] [id number] Insurance:[facility] [id number] [facility] MEDICAIDPolicy Repository [place] Number: [address]Yun: 234) [id number] [phone] (HP) Date: 06/25/2017 KEM ZELENKADOB: Primary KEM ZELENKADOB: [facility] [id number] Insurance:[facility] [id number] [facility] MEDICAIDPolicy Repository [place] Number: [address]Gnn: 330 [id number] (HP) Date: 06/20/2017 KEM ZELENKADOB: Primary KEM ZELENKADOB: [facility] [id number] Insurance:[facility] [id number] [facility] MEDICAIDPolicy Repository [place] Number: [address]Knu: 330 [id number] [phone] (HP) Date: 04/01/2017 KEM HERNANDEZB: Primary KEM HERNANDEZB: [facility] Insurance:CARESOURCE^ [id number] Repository [place] L^230^^^[id number]^XXPoli [place], [place] cy Number: [place] [address] [id number] Date:Plan Name:Health [address] [place] [address] [phone]: 04/01/2017 KEM HERNANDEZB: Primary KEM HERNANDEZB: [place] [facility] [id number] [facility] olicy Number: [place] Repository [place], [place] [id number] [place], [place] [address]Acf: (330) Date:Plan [address]Qbo: (HP) Name:[facility] Box [phone] () [address] [place] [address] [id number]: 03/10/2017 KEM HERNANDEZB: Primary KEM HERNANDEZB: [facility] [id number] Insurance:CARESOURCE^ [id number] Repository [place] [id number] [address] [place], [place] cy Number: [place] [address] [id number] Date:Plan Name:Health [address] [place] [address] [id number]
== END 2018-01-17 13:05 | disposition home or self-care (01) ==
LOC: ED 13:02
PROVIDERS: Emergency Provider Emergency Medicine
DX: J06.9 Acute upper respiratory infection, unspecified (principal); F41.9 Anxiety disorder, unspecified; F32.9 Major depressive disorder, single episode, unspecified; Z86.718 Personal history of other venous thrombosis and embolism; Z87.898 Personal history of other specified conditions; Z79.01 Long term (current) use of anticoagulants; Z72.0 Tobacco use
CPT/HCPCS: 80307; 99282